=== PATIENT | female | born 1940 | race Caucasian/White ===

== ENCOUNTER 2016-09-19 18:44 | Observation (INO) | payer OTHER, MEDICAID ==
--- NOTE | 2016-09-19 19:24 | DR.GENAD ---
HPI - HPI Comment HPI Comment: PATIENT FOUND IN THE WHEELCHAIR SEIZING. HISTORY SEIZURE DISORDER. ON LAMICTAL. NO RECENT SEIZURE. PATIENT SAID HER MUSCLES HURT. THIS HAPPEN AFTER SEIZURES. HAVE SLIGHT HEADACHE, SOB AND CHEST DISCOMFORT. NO FEVER OR DYSURIA. PATIENT FEEL LIKE SHE HAD MORE THAN ONE SEIZURE BEFORE THE FOUND HER. - Complaint/Symptoms Chief Complaint Doctors Comments: SEIZURE AT THE JAIL. - Nurses notes reviewed Nurses Notes Review: Yes - Source History Provided: Parent, Fpc - Mode of Arrival Mode of Arrival: Stretcher - Timing Came on: Suddenly - Duration Duration: Since Onset Duration: Hours - Severity Severity: Moderate PMH - PMH Past Medical History: Anxiety, CVA, GERD Past Surgical History: Yes Surgical History: Cholecystectomy - Family History Family Medical History: Diabetes Mellitus, Cancer, Hypertension - Social History Do you use any recreational Drugs:: No ROS - Review of Systems Constitutional: Weakness, Fatigue. negative: Chills, Diaphoresis, Fever, Loss of Appetite Eyes: No Symptoms Reported. negative: Eye Pain, Blurred Vision, Discharge, Photophobia, Diplopia ENTM: No Symptoms Reported. negative: Ear Pain, Epistaxis, Nose Congestion, Throat Pain Respiratoy: Non-Productive Cough, Short of Breath (ON EXERTION). negative: Productive Cough, Wheezing, Hemoptysis Cardiovascular: Chest Pain, Edema, Syncope Gastrointestinal/Abdominal: negative: Abdominal Pain, Diarrhea, Nausea, Vomiting Genitourinary: Hematuria, Other (INCONTINENCE ) Neurological: Headache, Weakness, Dizziness Musculoskeletal: Muscle Pain Integumentary: Other (STASIS DERMATITIS) Hematologic/Lymphatic: Easy Bleeding, Easy Bruising Endocrine: No Symptoms Reported All Other Systems: Reviewed and Negative PE - Vital Signs Vitals: Pulse Rate 104 Respiratory Rate 18 Blood Pressure [Left Arm] 117/69 Blood Pressure [Right Arm] 145/88 Blood Pressure 132/61 O2 Sat by Pulse Oximetry 95 - General Limitations: No Limitations General Appearance: Alert - Head Head Exam: Normal Inspection - Eyes Eye exam: Other (PTOSIS RT EYE.) - ENT ENT Exam: Normal External Ear Exam, Other (PTOSIS RT EYE.) External Ear Exam: Normal External Inspection TM/Canal Exam: Bilateral Normal Nose Exam: Normal Nose Exam Mouth Exam: Normal Inspection Throat Exam: Normal Inspection - Neck Neck Exam: Normal Inspection - Chest Chest Inspection: Symmetric Chest Wall Rise - Respiratory Respiratory Exam: Normal Lung Sounds Bilat. negative: Respiratory Distress Respiratory Exam: Bilateral Rhonchi, Lower Rhonchi - Cardiovascular Cardiovascular Exam: Regular Rate, Normal Rhythm, Normal Heart Sounds - Abdominal Exam Abdominal Exam: Normal Bowel Sounds, Soft. negative: Tenderness - Extremities Extremities Exam: Edema - Back Back Exam: Paraspinal Tenderness - Neurologic Neurological Exam: Alert, Oriented X3 - Psychiatric Psychiatric Exam: Normal Affect, Normal Mood - Skin Skin Exam: Erythema MDM - Differential Diagnosis Differential Diagnosis: SEIZURE Course - Treatment Treatment: SEE ORDERS - Consultation Consultation Comments: DISCUSS PATIENT WITH DR. BOYCE. HE WILL ADMIT PATIENT. - Education/Counseling Education/Counseling: Patient, Education Educated On: Diagnosis ROR - Labs Reviewed Laboratory Results Reviewed?: Yes Result Diagrams: 09/20/16 05:30 09/20/16 05:30 - XRAY XRAY Interpreted by: Radiologist XRAY Findings: REPORT DISCUSS WITH PATIENT. - EKG Rhythm: NSR (EKG NOTED) - Diagnosis Discharge Problem: Seizure, Seizure disorder - Discharge Plan Disposition: ADMITTED INPATIENT Condition: Stable - Follow ups/Referrals - Instructions
[2016-09-19 20:08] LABS: BASOPHILS # (AUTO) 0.1 X10^3/uL (0.0-0.1); BASOPHILS % (AUTO) 0.8 % (0.2-1.0); EOSINOPHILS # (AUTO) 0.2 x10^3/uL (0.0-0.2); EOSINOPHILS % (AUTO) 2.2 % (0.9-2.9); HEMATOCRIT 41.2 % (36.0-47.0); HEMOGLOBIN 13.9 g/dL (12.0-16.0); LYMPHOCYTES # (AUTO) 0.9 X10^3/uL (1.3-2.9); LYMPHOCYTES % (AUTO) 12.2 % (21.0-51.0); MEAN CORPUSCULAR HEMOGLOBIN 29.6 pg (27.0-34.0); MEAN CORPUSCULAR HGB CONC 33.7 g/dL (33.0-35.0); MEAN CORPUSCULAR VOLUME 87.8 fL (80.0-100.0); MEAN PLATELET VOLUME 8.4 fL (7.4-11.0); MONOCYTES # (AUTO) 0.6 x10^3/uL (0.3-0.8); MONOCYTES % (AUTO) 8.4 % (0.0-13.0); NEUTROPHILS # (AUTO) 5.5 x10^3/uL (2.2-4.8); NEUTROPHILS % (AUTO) 76.4 % (42.0-75.0); PLATELET COUNT 250 X10^3/uL (150.0-450.0); RED BLOOD COUNT 4.69 X10^6/uL (3.5-5.4); RED CELL DISTRIBUTION WIDTH 14.4 % (11.6-16.5); WHITE BLOOD COUNT 7.3 X10^3/uL (3.6-10.0)
[2016-09-19 20:29] LABS: BLOOD UREA NITROGEN 26 mg/dL (7-18); CALCIUM 8.2 mg/dL (8.5-10.1); CARBON DIOXIDE 26.7 mmol/L (21-32); CHLORIDE 108 mmol/L (98-107); COR NA(FOR HYPERGLY) 143 mmol/L (136-145); CREATININE 0.78 mg/dL (0.55-1.02); GLUCOSE 119 mg/dL (65-99); SODIUM 143 mmol/L (136-145); TROPONIN I < 0.02 ng/mL (0-1.5); eGFR BLACK RACES > 60 (>60); eGFR NON BLACK RACES > 60 (>60)
[2016-09-19 20:33] LABS: ALANINE AMINOTRANSFERASE 26 Units/L (12-78); ALBUMIN 3.4 g/dL (3.4-5.0); ALKALINE PHOSPHATASE 191 Units/L (46-116); ASPARTATE AMINO TRANSFERASE 21 Units/L (15-37); TOTAL PROTEIN 6.7 g/dL (6.4-8.2)
--- NOTE | 2016-09-19 20:39 | RAD ---
HISTORY: Chest pain Study: Single view of the chest. Comparison: 02/28/2016 Findings: The cardiomediastinal silhouette is normal. No definite focal consolidations, pleural effusions or p neumothorax. Osseous structures demonstrate no acute abnormality. Patient's left arm obscures view o f the left chest. IMPRESSION: 1. No definite acute cardiopulmonary process. Patient's left arm obscures the left chest and theref ore pathology cannot be completely excluded in this region. Reported By:
[2016-09-19 20:40] LABS: CKMB % 1.4 % (<4); CREATINE KINASE 100 Units/L (26-192); CREATINE KINASE MB 1.4 ng/mL (0-4.0)
[2016-09-19] MEDS: NS 1000 ML 1,000 ML IV SCH (21:46)
[2016-09-20 00:32] VITALS: BMI 25.8
[2016-09-20 06:07] LABS: BILIRUBIN,URINE NEGATIVE (NEGATIVE); BLOOD/HEMOGLOBIN,URINE 2+ (NEGATIVE); GLUCOSE, URINE NEGATIVE (NEGATIVE); KETONES,URINE NEGATIVE (NEGATIVE); LEUKOCYTE ESTERASE ,URINE 1+ (NEGATIVE); NITRITES,URINE POSITIVE (NEGATIVE); PROTEIN,URINE NEGATIVE (NEGATIVE); UROBILINOGEN,URINE NORMAL (NORMAL)
[2016-09-20 06:09] LABS: BASOPHILS # (AUTO) 0.1 X10^3/uL (0.0-0.1); BASOPHILS % (AUTO) 0.8 % (0.2-1.0); EOSINOPHILS # (AUTO) 0.2 x10^3/uL (0.0-0.2); EOSINOPHILS % (AUTO) 3.4 % (0.9-2.9); HEMATOCRIT 39.4 % (36.0-47.0); HEMOGLOBIN 13.1 g/dL (12.0-16.0); LYMPHOCYTES # (AUTO) 1.3 X10^3/uL (1.3-2.9); LYMPHOCYTES % (AUTO) 19.5 % (21.0-51.0); MEAN CORPUSCULAR HEMOGLOBIN 29.4 pg (27.0-34.0); MEAN CORPUSCULAR HGB CONC 33.2 g/dL (33.0-35.0); MEAN CORPUSCULAR VOLUME 88.5 fL (80.0-100.0); MEAN PLATELET VOLUME 9.7 fL (7.4-11.0); MONOCYTES # (AUTO) 0.7 x10^3/uL (0.3-0.8); MONOCYTES % (AUTO) 11.3 % (0.0-13.0); NEUTROPHILS # (AUTO) 4.3 x10^3/uL (2.2-4.8); PLATELET COUNT 165 X10^3/uL (150.0-450.0); RED BLOOD COUNT 4.45 X10^6/uL (3.5-5.4); RED CELL DISTRIBUTION WIDTH 14.2 % (11.6-16.5); WHITE BLOOD COUNT 6.6 X10^3/uL (3.6-10.0)
[2016-09-20 06:32] LABS: PLATELET MORPHOLOGY COMMENT NORMAL (NORMAL)
[2016-09-20 06:34] LABS: ALANINE AMINOTRANSFERASE 22 Units/L (12-78); ALBUMIN 2.9 g/dL (3.4-5.0); ALKALINE PHOSPHATASE 159 Units/L (46-116); ASPARTATE AMINO TRANSFERASE 19 Units/L (15-37); BLOOD UREA NITROGEN 23 mg/dL (7-18); CALCIUM 7.8 mg/dL (8.5-10.1); CARBON DIOXIDE 25.2 mmol/L (21-32); CHLORIDE 111 mmol/L (98-107); COR CA(FOR HYPOALB) 8.7 mg/dL (8.5-10.1); CREATININE 0.69 mg/dL (0.55-1.02); GLUCOSE 80 mg/dL (65-99); MAGNESIUM 2.1 mg/dL (1.7-2.9); SODIUM 143 mmol/L (136-145); TOTAL PROTEIN 5.8 g/dL (6.4-8.2); eGFR BLACK RACES > 60 (>60); eGFR NON BLACK RACES > 60 (>60)
[2016-09-20 06:42] LABS: APPEARANCE,URINE HAZY (CLEAR); BACTERIA,URINE 1+ /HPF (NEGATIVE); COLOR,URINE YELLOW (YELLOW); SQUAMOUS EPITHELIAL CELL,UR MODERATE /HPF (NEGATIVE)
[2016-09-20] MEDS ORDERED: MIRALAX POWDER (255 GM BTL) PO PRN (11:11)
[2016-09-20] MEDS ORDERED: NS 100 ML IV 100 ML IV ONE (12:18)
--- NOTE | 2016-09-20 13:21 | CT ---
STUDY: CT HEAD WITHOUT AND WITH CONTRAST HISTORY: Seizures. COMPARISON: Head CT dated August 01, 2014. TECHNIQUE: Multiple axial images of the head were obtained from the skull base to the vertex without and with administration of IV contrast. Automated exposure control (AEC) was utilized to adjust the MA and/or kV. Findings: Precontrast Head: There is a larger right fronto temporal craniectomy defect. There is extensive cys tic encephalomalacia involving the right frontal lobe and right temporal lobe. There is ex vacuo dil atation of the right lateral ventricle. The left lateral ventricle and 3rd ventricle are enlarged . The 4th ventricle is within normal limits. There assymmetric atrophy of the right cerebral peduncle. There are confluent and scattered foci of low attenuation in the periventricular and subcortical whi te matter of both hemispheres. This is greater on the right than the left. There is no evidence of a cute territorial infarction, hemorrhage, mass, mass effect or midline shift. There are no abnormal e xtra-axial fluid collections. There is no evidence of acute osseous abnormality or significant soft tissue swelling. Postcontrast head: Following the uneventful administration of intravenous contrast, there is no evid ence of abnormal brain parenchymal or leptomeningeal enhancement. IMPRESSION: 1. No evidence of acute intracranial abnormality. 2. Postsurgical change status post right frontotemporal craniectomy. 3. Extensive encephalomalacia involving the right frontal and temporal lobes. 4. Nonspecific white matter change and volume loss as described. Reported By:
[2016-09-20] MEDS: LINZESS PO SCH (13:36)
[2016-09-20] MEDS: ZANTAC PO SCH ×2 (13:36→21:28)
[2016-09-20] MEDS: MICRO K EXTEN CAP 10 MEQ PO SCH ×2 (13:36→21:26)
[2016-09-20] MEDS: BUSPAR PO SCH ×2 (13:37→21:25)
[2016-09-20] MEDS: ARTIFICIAL TEARS DROPS EACHEYE SCH ×2 (13:37→21:29)
[2016-09-20] MEDS: LIORESAL PO SCH ×2 (13:37→21:24)
[2016-09-20] MEDS: LAMICTAL TAB 100 MG PO SCH ×2 (13:37→21:26)
[2016-09-20] MEDS: NS 1000 ML 1,000 ML IV SCH ×2 (16:24→17:57)
[2016-09-20] MEDS ORDERED: REMERON PO SCH (21:00)
[2016-09-20] MEDS ORDERED: VITAMIN D3 PO SCH (21:00)
[2016-09-21] MEDS: NS 1000 ML 1,000 ML IV SCH (03:52)
[2016-09-21 03:57] LABS: BASOPHILS # (AUTO) 0.1 X10^3/uL (0.0-0.1); EOSINOPHILS # (AUTO) 0.2 x10^3/uL (0.0-0.2); EOSINOPHILS % (AUTO) 3.1 % (0.9-2.9); HEMOGLOBIN 12.3 g/dL (12.0-16.0); LYMPHOCYTES # (AUTO) 1.2 X10^3/uL (1.3-2.9); LYMPHOCYTES % (AUTO) 21.9 % (21.0-51.0); MEAN CORPUSCULAR HEMOGLOBIN 29.5 pg (27.0-34.0); MEAN CORPUSCULAR HGB CONC 33.3 g/dL (33.0-35.0); MEAN CORPUSCULAR VOLUME 88.6 fL (80.0-100.0); MEAN PLATELET VOLUME 8.5 fL (7.4-11.0); MONOCYTES # (AUTO) 0.6 x10^3/uL (0.3-0.8); MONOCYTES % (AUTO) 10.6 % (0.0-13.0); NEUTROPHILS # (AUTO) 3.4 x10^3/uL (2.2-4.8); NEUTROPHILS % (AUTO) 63.4 % (42.0-75.0); PLATELET COUNT 214 X10^3/uL (150.0-450.0); RED BLOOD COUNT 4.18 X10^6/uL (3.5-5.4); RED CELL DISTRIBUTION WIDTH 14.3 % (11.6-16.5); WHITE BLOOD COUNT 5.4 X10^3/uL (3.6-10.0)
[2016-09-21 04:06] LABS: ALANINE AMINOTRANSFERASE 23 Units/L (12-78); ALBUMIN 2.7 g/dL (3.4-5.0); ALKALINE PHOSPHATASE 160 Units/L (46-116); ASPARTATE AMINO TRANSFERASE 19 Units/L (15-37); BLOOD UREA NITROGEN 17 mg/dL (7-18); CALCIUM 7.9 mg/dL (8.5-10.1); CARBON DIOXIDE 24.7 mmol/L (21-32); COR CA(FOR HYPOALB) 8.9 mg/dL (8.5-10.1); CREATININE 0.77 mg/dL (0.55-1.02); GLUCOSE 91 mg/dL (65-99); SODIUM 145 mmol/L (136-145); TOTAL PROTEIN 5.4 g/dL (6.4-8.2); eGFR BLACK RACES > 60 (>60); eGFR NON BLACK RACES > 60 (>60)
[2016-09-21 04:09] LABS: CHLORIDE 115 mmol/L (98-107)
[2016-09-21] MEDS: ARTIFICIAL TEARS DROPS EACHEYE SCH ×2 (05:52→14:10)
[2016-09-21] MEDS: MICRO K EXTEN CAP 10 MEQ PO SCH ×2 (05:53→14:10)
[2016-09-21] MEDS: LIORESAL PO SCH (09:14)
[2016-09-21] MEDS: BUSPAR PO SCH (09:14)
[2016-09-21] MEDS: LINZESS PO SCH (09:14)
[2016-09-21] MEDS: ZANTAC PO SCH (09:14)
[2016-09-21] MEDS: LAMICTAL TAB 100 MG PO SCH (09:15)
[2016-09-21 12:23] VITALS: BP 100/47
--- NOTE | 2016-09-21 18:26 | DR.CARTERD ---
- Discharge Summary for: Discharge Summary for Date of:: 09/21/16 - Admission Date Date of Admission: 09/19/16 - Admission Diagnoses Admission Diagnosis: 1) KNOWN BENIGN BRAIN TUMOR 2)SEIZURE DISORDER 3)HYPOKALEMIA - Discharge Date Discharge Date: 09/21/16 - Discharge Diagnoses Discharge Diagnosis: 1) KNOWN BENIGN BRAIN TUMOR 2)SEIZURE DISORDER 3)HYPOKALEMIA - Hospital Course Hospital Course: IS A 76 YEAR OLD PATIENT OF . SHE IS A RESIDENT OF [facility]. SHE PRESENTED TO THE EMERGENCY ROOM WITH WHAT STAFF REPORTED SEIZURE LIKE ACTIVITY. PATIENT WAS NOTED WITH COMPLAINTS OF HEADACHE, SHORTNESS OF BREATH, AND CHEST DISCOMFORT. SHE ALSO COMPLAINED OF HER MUSCLES ACHING. PATIENT STATED THAT SHE USUALLY HAS THESE SYMPTOMS AFTER HAVING A SEIZURE. LABS AND CHEST XRAY WERE OBTAINED. CBC WAS WNL. CMP WNL EXCEPT CHLORIDE 108, BUN 26, GLUCOSE 119, CALCIUM 8.0, TOTAL BILIRUBIN 0.10, ALKALINE PHOSPHATASE 191. URINALYSIS REPORTED WBC 4-8, LEUKOCYTES 1+, BACTERIA 1+, NITRATES POSITIVE. CHEST XRAY WAS CLEAR. PATIENT WAS ADMITTED FOR FURTHER TREATMENT AND EVALUATION. SHE WAS STARTED ON NS @ 50ML/HR. A BRAIN CT WAS ORDERED FOR THE MORNING FOLLOWING ADMISSION. IT REPORTED EXTENSIVE ENCEPHALOMALACIA INVOLVING THE RIGHT FRONTAL AND TEMPERAL LOBES, POST SURGICAL CHANGED STATUS POST RIGHT FRONTOTEMPERAL CRANIECTOMY, AND NONSPECIFIC WHITE MATTER CHANGE AND VOLUME LOSS. NO EVIDENCE FOR ACUTE ABNORMALITY WAS IDENTIFIED. ON THE DAY OF ADMISSION, PATIENT WAS LYING IN BED WITH EYES OPEN. SHE HAD NO COMPLAINTS ON ROUNDS. VITALS WERE 97.9-74-20-100%-110/41. CBC WNL. CMP REPORTED CHLORIDE 115, CALCIUM 7.9, ALKALINE PHOSPHATAE 160, TOTAL PROTEIN 5.4, ALBUMIN 2.7. WE PLANNED FOR DISCHARGE. INSTRUCTIONS FOR MEDICATIONS AND FOLLOW UP WERE GIVEN TO PATIENT AND STAFF AT [facility]. PATIENT WAS DISCHARGED BACK TO [facility] IN STABLE CONDITION. SHE WILL CONTINUE ON CURRENT HOME MEDICATIONS. WILL FOLLOW UP WITH PATIENT AT [facility]. - Discharge Medications Discharge Medications: Linaclotide [Linzess] 145 mcg PO DAILY 09/19/16 [History] Mirtazapine 15 mg PO HS 09/19/16 [History] Polyethylene Glycol Pwd Btl [MIRALAX. (255 GM BOTTLE) *] 37 grams PO Q24H PRN [History]
== END 2016-09-21 14:44 ==
LOC: ER 18:54 → ICU 20:46
PROVIDERS: ADMIT Obstetrics & Gynecology Obstetrics; ATTEND Obstetrics & Gynecology Obstetrics
DX: G40.802 Other epilepsy, not intractable, without status epilepticus (principal); R07.89 Other chest pain; R06.02 Shortness of breath; R51 Headache; F41.8 Other specified anxiety disorders; K21.9 Gastro-esophageal reflux disease without esophagitis; R94.31 Abnormal electrocardiogram [ECG] [EKG]; E87.6 Hypokalemia; G93.89 Other specified disorders of brain; Z87.898 Personal history of other specified conditions
CPT/HCPCS: 36415; 70470; 71010; 80053; 81001; 82550; 82553; 83735; 84484; 85025; 93005; 93010; 96365; 99284; A4222; G0378

== ENCOUNTER → 2016-10-10 | Outpatient (CLI) | payer OTHER, MEDICAID ==
[2016-09-21 12:23] VITALS: BP 100/47
[2016-10-10 12:18] LABS: BASOPHILS # (AUTO) 0.1 X10^3/uL (0.0-0.1); BASOPHILS % (AUTO) 0.8 % (0.2-1.0); EOSINOPHILS # (AUTO) 0.2 x10^3/uL (0.0-0.2); EOSINOPHILS % (AUTO) 2.7 % (0.9-2.9); HEMATOCRIT 43.1 % (36.0-47.0); HEMOGLOBIN 14.2 g/dL (12.0-16.0); LYMPHOCYTES # (AUTO) 1.1 X10^3/uL (1.3-2.9); LYMPHOCYTES % (AUTO) 17.8 % (21.0-51.0); MEAN CORPUSCULAR HEMOGLOBIN 29.4 pg (27.0-34.0); MEAN CORPUSCULAR VOLUME 89.3 fL (80.0-100.0); MEAN PLATELET VOLUME 8.5 fL (7.4-11.0); MONOCYTES # (AUTO) 0.6 x10^3/uL (0.3-0.8); MONOCYTES % (AUTO) 9.4 % (0.0-13.0); NEUTROPHILS # (AUTO) 4.3 x10^3/uL (2.2-4.8); NEUTROPHILS % (AUTO) 69.3 % (42.0-75.0); PLATELET COUNT 243 X10^3/uL (150.0-450.0); RED BLOOD COUNT 4.82 X10^6/uL (3.5-5.4); RED CELL DISTRIBUTION WIDTH 14.4 % (11.6-16.5); WHITE BLOOD COUNT 6.1 X10^3/uL (3.6-10.0)
[2016-10-10 12:28] LABS: ALANINE AMINOTRANSFERASE 26 Units/L (12-78); ALBUMIN 3.5 g/dL (3.4-5.0); ALKALINE PHOSPHATASE 162 Units/L (46-116); ASPARTATE AMINO TRANSFERASE 19 Units/L (15-37); BLOOD UREA NITROGEN 23 mg/dL (7-18); CALCIUM 8.7 mg/dL (8.5-10.1); CARBON DIOXIDE 28.3 mmol/L (21-32); CHLORIDE 103 mmol/L (98-107); GLUCOSE 98 mg/dL (65-99); SODIUM 127 mmol/L (136-145); eGFR BLACK RACES > 60 (>60); eGFR NON BLACK RACES > 60 (>60)
--- NOTE | 2016-10-10 15:53 | RAD ---
HISTORY: Diarrhea Study: Acute abdominal series Comparison: February 28, 2016 Findings: The trachea is midline. The cardiac silhouette is mildly enlarged. No congestive heart failure is n oted.. The lungs are clear without focal infiltrate or effusion. The bony thorax is unremarkable. Flat plate and upright evaluation of the abdomen demonstrates a normal bowel gas pattern. No pneumop eritoneum is identified.. No pathological soft tissue mass or calcification can be observed. The b judith structures are grossly intact. There is a coil length of catheter material in the mid pelvis lik bijal within the bladder. The reason for this is unclear. This could represent an old ureteral stent. It has been present for a long period time. IMPRESSION: 1. Cardiomegaly without congestive heart failure 2. No evidence for acute abdominal pathology identified. 3. Long segment of coiled catheter in the mid pelvis likely within the bladder and possibly represen ting an old ureteral stent. This is been present for a long period of time. For the urologic evaluat ion may be indicated. Reported By:
== END ==
LOC: RAD 08:42
PROVIDERS: ATTEND Obstetrics & Gynecology Obstetrics
DX: R19.7 Diarrhea, unspecified (principal)
CPT/HCPCS: 36415; 74022; 80053; 85025

== ENCOUNTER 2018-04-25 06:50 | Inpatient (IN) ==
[2018-04-25 07:09] VITALS: BMI 26.0
[2018-04-25] MEDS ORDERED: DUONEB 0.5 MG/3 MG NEB ONE (07:16)
[2018-04-25] MEDS ORDERED: DUONEB 0.5 MG/3 MG ONE (07:17)
--- NOTE | 2018-04-25 07:35 | RAD ---
Examination: AP chest History: Seizure, cough SOB Comparison 10/27/2017 Findings: Cardiomegaly and aortic dilatation. Low volume lungs with elevated right diaphragm. Overlying anatomy obscures the upper lungs and mediastinum. Impression: Cardiomegaly. No acute pulmonary or pleural lesion identified. See above. Reported By:
[2018-04-25 07:45] LABS: BASOPHILS % (AUTO) 0.3 % (0.2-1.0); EOSINOPHILS % (AUTO) 0.2 % (0.9-2.9); HEMATOCRIT 41.8 % (36.0-47.0); HEMOGLOBIN 13.7 g/dL (12.0-16.0); LYMPHOCYTES # (AUTO) 0.7 X10^3/uL (1.3-2.9); LYMPHOCYTES % (AUTO) 4.4 % (21.0-51.0); MEAN CORPUSCULAR HEMOGLOBIN 29.5 pg (27.0-34.0); MEAN CORPUSCULAR HGB CONC 32.8 g/dL (33.0-35.0); MEAN CORPUSCULAR VOLUME 89.7 fL (80.0-100.0); MEAN PLATELET VOLUME 8.6 fL (7.4-11.0); MONOCYTES # (AUTO) 1.1 x10^3/uL (0.3-0.8); MONOCYTES % (AUTO) 7.2 % (0.0-13.0); NEUTROPHILS % (AUTO) 87.9 % (42.0-75.0); PLATELET COUNT 285 X10^3/uL (150.0-450.0); RED BLOOD COUNT 4.66 X10^6/uL (3.5-5.4); RED CELL DISTRIBUTION WIDTH 14.4 % (11.6-16.5)
--- NOTE | 2018-04-25 08:01 | DR.SEIZA ---
HPI Time Seen Time Seen by Provider: 04/25/18 07:30 Primary Care Physician Primary Care Physician: cho Complaints Chief Complaint Doctors Comments: A 77 y/o female HNR who presented with information relate d by staff of having had a seizure this morning (0630 hrs). Duration of sz. not ascertained. Pt. herself said she has been having cough for the past 2-3 days, not productive. While in the ED, she was noted with a temp elevation. Chief Complaint:: [facility] staff stated she had a seizure at 630 this morning. pt stated she always has seizures, pt stated she was here cause she has been coughing and short of breath for 2 days. Source History Provided: Law Enforcement Mode of Arrival Mode of Arrival: Stretcher Timing Onset of Chief Complaint: 04/23/18 PMH PMH Past Medical History: Yes Past Medical History: Anxiety, CVA and GERD Past Surgical History: Yes Surgical History: Cholecystectomy Family History History of Family Medical Conditions: Yes Family Medical History: Diabetes Mellitus, Cancer and Hypertension Social History Does patient currently use any type of tobacco product: No Have you used tobacco products in the last 12 months: No Type of Tobacco Use: None Does any household member use tobacco: No Alcohol Use: Rarely Do you use any recreational Drugs:: No Lives With: Other Lives Where: Alf infectious screening In the last 2 months have you had wt loss of >10#?: NO Have you had fever, night sweats or hemotysis?: No Have you traveled outside the country in the last 6 months?: No Isolation: Standard ROS Review of Systems Constitutional: Fever Eyes: No Symptoms Reported ENTM: No Symptoms Reported Respiratoy: Non-Productive Cough, Short of Breath and Wheezing Cardiovascular: No Symptoms Reported Gastrointestinal/Abdominal: No Symptoms Reported Genitourinary: No Symptoms Reported Neurological: Seizure Musculoskeletal: No Symptoms Reported Integumentary: No Symptoms Reported Hematologic/Lymphatic: No Symptoms Reported Endocrine: No Symptoms Reported Psychiatric: No Symptoms Reported PE Vital Signs Vitals: Temperature 100.1 F Pulse Rate 125 Respiratory Rate 18 Blood Pressure [Left Arm] 131/61 Blood Pressure [Right Arm] 100/47 Blood Pressure 128/60 O2 Sat by Pulse Oximetry 95 General Limitations: No Limitations General Appearance: Alert Head Head Exam: Normal Inspection, Atraumatic and Normocephalic Eyes Eye exam: Normal Appearance, PERRL and EOMI ENT ENT Exam: Normal Exam, Normal Oropharynx and Mucous Membranes Moist Neck Neck Exam: Normal Inspection and Trachea Midline Chest Chest Inspection: Normal Inspection and Symmetric Chest Wall Rise Respiratory Respiratory Exam: Bilateral: Wheezing and Bilateral: Rhonchi Cardiovascular Cardiovascular Exam: Regular Rate, Normal Rhythm, +S1 and +S2 Abdominal Exam Abdominal Exam: Normal Inspection, Normal Bowel Sounds and Soft Extremities Extremities Exam: Normal Inspection Neurologic Neurological Exam: Alert Psychiatric Psychiatric Exam: Normal Affect and Normal Mood Skin Skin Exam: Warm, Dry, Intact and Normal Color ROR Labs Reviewed Result Diagrams: 04/25/18 07:35 04/25/18 07:35 Laboratory: WBC 16.0 X10^3/uL (3.6-10.0) H 04/25/18 07:35 RBC 4.66 X10^6/uL (3.5-5.4) 04/25/18 07:35 Hgb 13.7 g/dL (12.0-16.0) 04/25/18 07:35 Hct 41.8 % (36.0-47.0) 04/25/18 07:35 MCV 89.7 fL (80.0-100.0) 04/25/18 07:35 MCH 29.5 pg (27.0-34.0) 04/25/18 07:35 MCHC 32.8 g/dL (33.0-35.0) L 04/25/18 07:35 RDW 14.4 % (11.6-16.5) 04/25/18 07:35 Plt Count 285 X10^3/uL (150.0-450.0) 04/25/18 07:35 MPV 8.6 fL (7.4-11.0) 04/25/18 07:35 Neut % (Auto) 87.9 % (42.0-75.0) H 04/25/18 07:35 Lymph % (Auto) 4.4 % (21.0-51.0) L 04/25/18 07:35 [place] % (Auto) 7.2 % (0.0-13.0) 04/25/18 07:35 Eos % (Auto) 0.2 % (0.9-2.9) L 04/25/18 07:35 Baso % (Auto) 0.3 % (0.2-1.0) 04/25/18 07:35 Neut # (Auto) 14.0 x10^3/uL (2.2-4.8) H 04/25/18 07:35 Lymph # (Auto) 0.7 X10^3/uL (1.3-2.9) L 04/25/18 07:35 [place] # (Auto) 1.1 x10^3/uL (0.3-0.8) H 04/25/18 07:35 Eos # (Auto) 0.0 x10^3/uL (0.0-0.2) 04/25/18 07:35 Baso # (Auto) 0.0 X10^3/uL (0.0-0.1) 04/25/18 07:35 Absolute Nucleated RBC 0.0 /100WBC 04/25/18 07:35
[2018-04-25] MEDS ORDERED: ROBITUSSIN DM ONE (08:03)
[2018-04-25 08:12] LABS: ALANINE AMINOTRANSFERASE 23 Units/L (12-78); ALBUMIN 3.4 g/dL (3.4-5.0); ALKALINE PHOSPHATASE 170 Units/L (46-116); ASPARTATE AMINO TRANSFERASE 16 Units/L (15-37); BLOOD UREA NITROGEN 21 mg/dL (7-18); CALCIUM 9.1 mg/dL (8.5-10.1); CARBON DIOXIDE 25.1 mmol/L (21-32); CHLORIDE 110 mmol/L (98-107); COR NA(FOR HYPERGLY) 148 mmol/L (136-145); CREATININE 1.08 mg/dL (0.55-1.02); SODIUM 147 mmol/L (136-145); TOTAL PROTEIN 6.8 g/dL (6.4-8.2); eGFR NON BLACK RACES 52 (>60)
[2018-04-25 08:14] LABS: LACTIC ACID 2.8 mmol/L (0.4-2.0)
[2018-04-25] MEDS ORDERED: ROBITUSSIN DM PO ONE (08:14)
--- NOTE | 2018-04-25 08:31 | DR.SEIZA ---
HPI Time Seen Time Seen by Provider: 04/25/18 07:30 Primary Care Physician Primary Care Physician: cho Complaints Chief Complaint Doctors Comments: Patient presents with complaint of cough recent onset; non productive, febrile. PMHx: seizures craniotomy x several according to spouse. Chief Complaint:: [facility] staff stated she had a seizure at 630 this morning. pt stated she always has seizures, pt stated she was here cause she has been coughing and short of breath for 2 days. Reviewed Nurses Notes Reviewed: Yes Source History Provided: Patient, Family Member and Law Enforcement Mode of Arrival Mode of Arrival: Stretcher Timing Onset of Chief Complaint: 04/23/18 PMH PMH Past Medical History: Yes Past Medical History: Anxiety, CVA and GERD Past Surgical History: Yes Surgical History: Cholecystectomy Family History History of Family Medical Conditions: Yes Family Medical History: Diabetes Mellitus, Cancer and Hypertension Social History Does patient currently use any type of tobacco product: No Have you used tobacco products in the last 12 months: No Type of Tobacco Use: None Does any household member use tobacco: No Alcohol Use: Rarely Do you use any recreational Drugs:: No Lives With: Other Lives Where: [place] infectious screening In the last 2 months have you had wt loss of >10#?: NO Have you had fever, night sweats or hemotysis?: No Have you traveled outside the country in the last 6 months?: No Isolation: Standard PE Vital Signs Vitals: Temperature 100.1 F Pulse Rate 125 Respiratory Rate 18 Blood Pressure [Left Arm] 131/61 Blood Pressure [Right Arm] 100/47 Blood Pressure 128/60 O2 Sat by Pulse Oximetry 95 General Limitations: Physical Limitation General Appearance: Alert and In No Apparent Distress Head Head Exam: Normal Inspection, Atraumatic and Normocephalic Eyes Eye exam: Normal Appearance, PERRL and EOMI Eyelids: Normal Inspection: Bilateral Pupils: Regular, Round: Bilateral Sclera/Conjunctival: Normal Inspection: Bilateral ENT ENT Exam: Normal Exam, Normal Oropharynx, Normal External Ear Exam and Mucous Membranes Moist Mouth Exam: Normal Inspection Neck Neck Exam: Normal Inspection Chest Chest Inspection: Normal Inspection Respiratory Respiratory Exam: Upper: Rhonchi Cardiovascular Cardiovascular Exam: Regular Rate and Normal Rhythm Abdominal Exam Abdominal Exam: Normal Inspection, Normal Bowel Sounds and Soft Abdominal Tenderness: RUQ, RLQ and LUQ Extremities Extremities Exam: Normal Inspection Back Back Exam: Normal Inspection Neurologic Neurological Exam: Alert and Oriented X3 Cranial Nerve Exam: EOM Function (II, III, IV, ): Normal Skin Skin Exam: Warm, Dry, Intact and Normal Color COURSE Treatment Treatment: DuoNeb Reevaluation 1st: Unchanged ROR Labs Reviewed Laboratory Results Reviewed?: Yes Result Diagrams: 04/25/18 07:35 04/25/18 07:35 Laboratory: 04/25/18 11:19 Sputum - Expectorated Sputum - Final WBC 16.0 X10^3/uL (3.6-10.0) H 04/25/18 07:35 RBC 4.66 X10^6/uL (3.5-5.4) 04/25/18 07:35 Hgb 13.7 g/dL (12.0-16.0) 04/25/18 07:35 Hct 41.8 % (36.0-47.0) 04/25/18 07:35 MCV 89.7 fL (80.0-100.0) 04/25/18 07:35 MCH 29.5 pg (27.0-34.0) 04/25/18 07:35 MCHC 32.8 g/dL (33.0-35.0) L 04/25/18 07:35 RDW 14.4 % (11.6-16.5) 04/25/18 07:35 Plt Count 285 X10^3/uL (150.0-450.0) 04/25/18 07:35 MPV 8.6 fL (7.4-11.0) 04/25/18 07:35 Neut % (Auto) 87.9 % (42.0-75.0) H 04/25/18 07:35 Lymph % (Auto) 4.4 % (21.0-51.0) L 04/25/18 07:35 [place] % (Auto) 7.2 % (0.0-13.0) 04/25/18 07:35 Eos % (Auto) 0.2 % (0.9-2.9) L 04/25/18 07:35 Baso % (Auto) 0.3 % (0.2-1.0) 04/25/18 07:35 Neut # (Auto) 14.0 x10^3/uL (2.2-4.8) H 04/25/18 07:35 Lymph # (Auto) 0.7 X10^3/uL (1.3-2.9) L 04/25/18 07:35 [place] # (Auto) 1.1 x10^3/uL (0.3-0.8) H 04/25/18 07:35 Eos # (Auto) 0.0 x10^3/uL (0.0-0.2) 04/25/18 07:35 Baso # (Auto) 0.0 X10^3/uL (0.0-0.1) 04/25/18 07:35 Absolute Nucleated RBC 0.0 /100WBC 04/25/18 07:35 Sodium 147 mmol/L (136-145) H 04/25/18 07:35 Corrected Sodium 148 mmol/L (136-145) H 04/25/18 07:35 Potassium 3.9 mmol/L (3.5-5.1) 04/25/18 07:35 Chloride 110 mmol/L (98-107) H 04/25/18 07:35 Carbon Dioxide 25.1 mmol/L (21-32) 04/25/18 07:35 BUN 21 mg/dL (7-18) H 04/25/18 07:35 Creatinine 1.08 mg/dL (0.55-1.02) H 04/25/18 07:35 Est GFR (MDRD) Af Amer > 60 (>60) 04/25/18 07:35 Est GFR (MDRD) Non-Af 52 (>60) L 04/25/18 07:35 Glucose 138 mg/dL (65-99) H 04/25/18 07:35 Lactic Acid 2.8 mmol/L (0.4-2.0) H 04/25/18 07:35 Calcium 9.1 mg/dL (8.5-10.1) 04/25/18 07:35 Corrected Calcium TNP 04/25/18 07:35 Total Bilirubin 0.40 mg/dL (0.2-1.0) 04/25/18 07:35 AST 16 Units/L (15-37) 04/25/18 07:35 ALT 23 Units/L (12-78) 04/25/18 07:35 Alkaline Phosphatase 170 Units/L (46-116) H 04/25/18 07:35 C-Reactive Protein 18.00 mg/L (0-3.0) H 04/25/18 07:35 Total Protein 6.8 g/dL (6.4-8.2) 04/25/18 07:35 Albumin 3.4 g/dL (3.4-5.0) 04/25/18 07:35 Globulin 3.4 g/dL (2.5-4.5) 04/25/18 07:35 Albumin/Globulin Ratio 1.0 Ratio (1.1-2.1) L 04/25/18 07:35 Specimen Type Catherized urine 04/25/18 08:40 Urine Color Yellow (YELLOW) 04/25/18 08:40 Urine Appearance Cloudy (CLEAR) 04/25/18 08:40 Urine pH 5.0 (5.0 - 8.0) 04/25/18 08:40 Ur Specific [place] 1.030 (1.000-1.030) 04/25/18 08:40 Urine Protein 2+ (NEGATIVE) 04/25/18 08:40 Urine Glucose (UA) Negative (NEGATIVE) 04/25/18 08:40 Urine Ketones 1+ (NEGATIVE) 04/25/18 08:40 Urine Occult Blood 5+ (NEGATIVE) 04/25/18 08:40 Urine Nitrite Positive (NEGATIVE) 04/25/18 08:40 Urine Bilirubin Negative (NEGATIVE) 04/25/18 08:40 Urine Urobilinogen Normal (NORMAL) 04/25/18 08:40 Ur Leukocyte Esterase 2+ (NEGATIVE) 04/25/18 08:40 Urine RBC 10-20 /HPF (NONE SEEN) 04/25/18 08:40 Urine WBC 10-20 /HPF (NONE SEEN) 04/25/18 08:40 Ur Squamous Epith Cells Many /HPF (NEGATIVE) 04/25/18 08:40 Amorphous Sediment 1+ /HPF (NEGATIVE) 04/25/18 08:40 Urine Bacteria 1+ /HPF (NEGATIVE) 04/25/18 08:40 Urine Mucus Moderate /HPF (NEGATIVE) 04/25/18 08:40 Ur Culture Indicated? Yes/culture set up 04/25/18 08:40 Other Results Comments: Cardiomegaly and aortic dilatation. Low volume lung with elev ated right diaphragm. Overlying anatomy obscures the upper lungs and mediastinum. XRAY XRAY Interpreted by: Radiologist Diagnosis Discharge Problem: Cough, Seizure disorder, Acute hypernatremia UTI (urinary tract infection) Qualifiers: Urinary tract infection type: acute cystitis Hematuria presence: with hematuria Qualified Code(s): N30.01 - Acute cystitis with hematuria
[2018-04-25] MEDS ORDERED: ZOSYN VIAL 3.375 GRAMS IV ONE (09:01)
[2018-04-25] MEDS ORDERED: NS 100 ML IV 100 ML IV ONE (09:02)
[2018-04-25 09:13] LABS: APPEARANCE,URINE CLOUDY (CLEAR); BACTERIA,URINE 1+ /HPF (NEGATIVE); BILIRUBIN,URINE NEGATIVE (NEGATIVE); BLOOD/HEMOGLOBIN,URINE 5+ (NEGATIVE); COLOR,URINE YELLOW (YELLOW); GLUCOSE, URINE NEGATIVE (NEGATIVE); KETONES,URINE 1+ (NEGATIVE); LEUKOCYTE ESTERASE ,URINE 2+ (NEGATIVE); NITRITES,URINE POSITIVE (NEGATIVE); PROTEIN,URINE 2+ (NEGATIVE); SQUAMOUS EPITHELIAL CELL,UR MANY /HPF (NEGATIVE); UROBILINOGEN,URINE NORMAL (NORMAL)
[2018-04-25 09:14] LABS: AMORPHOUS SEDIMENT,UR 1+ /HPF (NEGATIVE); MUCUS,URINE MODERATE /HPF (NEGATIVE)
[2018-04-25] MEDS: ZOSYN VIAL 3.375 GRAMS 3.375 G in NS 100 ML IV + SPIKE MINIBAG* 100 ML IV SCH (09:24)
[2018-04-25] MEDS: NS 1000 ML 1,000 ML IV SCH (09:24)
--- NOTE | 2018-04-25 09:35 | RAD ---
Exam: AP chest History: Seizure Comparison reference 7:27 a.m. 04/25/2018 Findings: Continued upper normal heart size with arteriosclerotic aorta. Suspect mild atelectasis retrocardiac left lower lung. Marked elevation of diaphragm obscures the posterior right lower lobe. Gas containing bowel is interposed between the right hemidiaphragm and the liver. There is no evidence for pneumonia, pneumothorax or pulmonary edema. Impression: Small focal atelectasis left lung base. Nonspecific elevation right hemidiaphragm. Negative otherwise. Reported By:
[2018-04-25] MEDS ORDERED: ROBITUSSIN AC PO ONE (12:11)
[2018-04-25] MEDS ORDERED: ROBITUSSIN AC ONE (12:15)
[2018-04-25] MEDS ORDERED: TYGACIL 50 MG VIAL 100 MG in NS 100 ML IV 100 ML IV ONE (14:13)
[2018-04-25] MEDS ORDERED: NS 1/2 1000 ML IV 1,000 ML IV SCH (15:00)
[2018-04-25] MEDS: TUSSIONEX PENNKINETIC SUSP PO PRN (16:04)
[2018-04-25] MEDS: ARTIFICIAL TEARS DROPS EACHEYE SCH ×2 (16:04→22:00)
[2018-04-25] MEDS ORDERED: ROBITUSSIN DM PO SCH (17:00)
[2018-04-25] MEDS: MERREM VIAL 500 MG in NS 100 ML IV + SPIKE MINIBAG* 100 ML IV SCH (20:45)
[2018-04-25] MEDS ORDERED: [UNRECOGNIZED DRUG - OTHER] PO SCH (21:00)
[2018-04-25] MEDS ORDERED: DEXTROMETHORPHAN PO SCH (21:00)
[2018-04-25] MEDS ORDERED: DOXYLAMINE PO SCH (21:00)
[2018-04-25] MEDS: MICRO K EXTEN CAP 10 MEQ PO SCH ×2 (21:44→22:00)
[2018-04-25] MEDS: REMERON PO SCH ×2 (21:44→22:00)
[2018-04-25] MEDS: VITAMIN D3 PO SCH ×2 (21:45→22:00)
[2018-04-25] MEDS: ZANTAC PO SCH ×2 (21:45→22:00)
[2018-04-25] MEDS: LIORESAL PO SCH ×2 (21:45→22:00)
[2018-04-25] MEDS: LAMICTAL TAB 100 MG PO SCH ×2 (21:45→22:00)
[2018-04-25] MEDS: MIRALAX POWDER (255 GRAMS BTL) PO SCH ×2 (21:48→22:00)
[2018-04-26] MEDS: NS 1000 ML 1,000 ML IV SCH ×3 (02:04→13:25)
[2018-04-26] MEDS: MERREM VIAL 500 MG in NS 100 ML IV + SPIKE MINIBAG* 100 ML IV SCH ×3 (06:08→21:22)
[2018-04-26] MEDS: MICRO K EXTEN CAP 10 MEQ PO SCH ×4 (06:08→21:20)
[2018-04-26] MEDS: ARTIFICIAL TEARS DROPS EACHEYE SCH ×3 (06:09→21:22)
--- NOTE | 2018-04-26 07:14 | DR.SEIZA ---
HPI Time Seen Time Seen by Provider: 04/25/18 07:30 Primary Care Physician Primary Care Physician: CARLI Dawson Chief Complaint:: tonh staff stated she had a seizure at 630 this morning. pt stated she always has seizures, pt stated she was here cause she has been coughing and short of breath for 2 days. Source History Provided: Patient, Family Member and Law Enforcement Mode of Arrival Mode of Arrival: Stretcher Timing Onset of Chief Complaint: 04/23/18 PMH PMH Past Surgical History: Yes Surgical History: Cholecystectomy Family History History of Family Medical Conditions: Yes Family Medical History: Diabetes Mellitus, Cancer and Hypertension Social History Does patient currently use any type of tobacco product: No Have you used tobacco products in the last 12 months: No Type of Tobacco Use: None Does any household member use tobacco: No Alcohol Use: None Do you use any recreational Drugs:: No Lives With: Other Lives Where: [facility] infectious screening In the last 2 months have you had wt loss of >10#?: NO Have you had fever, night sweats or hemotysis?: No Have you traveled outside the country in the last 6 months?: No Isolation: Standard PE Vital Signs Vitals: Temperature 100.2 F Pulse Rate [Left Brachial] 99 Pulse Rate 125 Respiratory Rate 20 Blood Pressure [Left Arm] 101/50 Blood Pressure [Right Arm] 100/47 Blood Pressure 128/60 O2 Sat by Pulse Oximetry 93 General Limitations: No Limitations and Altered Mental Status General Appearance: Alert and In No Apparent Distress Head Head Exam: Normal Inspection, Atraumatic and Normocephalic Eyes Eye exam: Normal Appearance, PERRL and EOMI Eyelids: Normal Inspection: Bilateral Pupils: Regular, Round: Bilateral ENT ENT Exam: Normal Exam, Normal Oropharynx and Normal External Ear Exam Mouth Exam: Normal Inspection Neck Neck Exam: Normal Inspection and Full ROM Chest Chest Inspection: Normal Inspection and Symmetric Chest Wall Rise Respiratory Respiratory Exam: Normal Lung Sounds Bilat Respiratory Exam: Bilateral: Clear to Auscultation Cardiovascular Cardiovascular Exam: Regular Rate and Normal Rhythm Abdominal Exam Abdominal Exam: Normal Inspection and Soft Extremities Extremities Exam: Normal Inspection and Full ROM Back Back Exam: Normal Inspection and Full ROM Neurologic Neurological Exam: Alert, Oriented X3 and CN II-XII Intact Cranial Nerve Exam: EOM Function (II, III, IV, ): Normal Psychiatric Psychiatric Exam: Normal Affect, Normal Mood and Flat Affect Skin Skin Exam: Warm, Dry and Intact ROR Labs Reviewed Result Diagrams: 04/25/18 07:35 04/25/18 07:35 Laboratory: 04/25/18 11:19 Sputum - Expectorated Sputum Sputum Culture - Preliminary 04/25/18 11:19 Sputum - Expectorated Sputum - Final 04/25/18 08:40 Urine,Catheterized Urine Culture - Preliminary WBC 16.0 X10^3/uL (3.6-10.0) H 04/25/18 07:35 RBC 4.66 X10^6/uL (3.5-5.4) 04/25/18 07:35 Hgb 13.7 g/dL (12.0-16.0) 04/25/18 07:35 Hct 41.8 % (36.0-47.0) 04/25/18 07:35 MCV 89.7 fL (80.0-100.0) 04/25/18 07:35 MCH 29.5 pg (27.0-34.0) 04/25/18 07:35 MCHC 32.8 g/dL (33.0-35.0) L 04/25/18 07:35 RDW 14.4 % (11.6-16.5) 04/25/18 07:35 Plt Count 285 X10^3/uL (150.0-450.0) 04/25/18 07:35 MPV 8.6 fL (7.4-11.0) 04/25/18 07:35 Neut % (Auto) 87.9 % (42.0-75.0) H 04/25/18 07:35 Lymph % (Auto) 4.4 % (21.0-51.0) L 04/25/18 07:35 [place] % (Auto) 7.2 % (0.0-13.0) 04/25/18 07:35 Eos % (Auto) 0.2 % (0.9-2.9) L 04/25/18 07:35 Baso % (Auto) 0.3 % (0.2-1.0) 04/25/18 07:35 Neut # (Auto) 14.0 x10^3/uL (2.2-4.8) H 04/25/18 07:35 Lymph # (Auto) 0.7 X10^3/uL (1.3-2.9) L 04/25/18 07:35 [place] # (Auto) 1.1 x10^3/uL (0.3-0.8) H 04/25/18 07:35 Eos # (Auto) 0.0 x10^3/uL (0.0-0.2) 04/25/18 07:35 Baso # (Auto) 0.0 X10^3/uL (0.0-0.1) 04/25/18 07:35 Absolute Nucleated RBC 0.0 /100WBC 04/25/18 07:35 Sodium 147 mmol/L (136-145) H 04/25/18 07:35 Corrected Sodium 148 mmol/L (136-145) H 04/25/18 07:35 Potassium 3.9 mmol/L (3.5-5.1) 04/25/18 07:35 Chloride 110 mmol/L (98-107) H 04/25/18 07:35 Carbon Dioxide 25.1 mmol/L (21-32) 04/25/18 07:35 BUN 21 mg/dL (7-18) H 04/25/18 07:35 Creatinine 1.08 mg/dL (0.55-1.02) H 04/25/18 07:35 Est GFR (MDRD) Af Amer > 60 (>60) 04/25/18 07:35 Est GFR (MDRD) Non-Af 52 (>60) L 04/25/18 07:35 Glucose 138 mg/dL (65-99) H 04/25/18 07:35 Lactic Acid 2.8 mmol/L (0.4-2.0) H 04/25/18 07:35 Calcium 9.1 mg/dL (8.5-10.1) 04/25/18 07:35 Corrected Calcium TNP 04/25/18 07:35 Total Bilirubin 0.40 mg/dL (0.2-1.0) 04/25/18 07:35 AST 16 Units/L (15-37) 04/25/18 07:35 ALT 23 Units/L (12-78) 04/25/18 07:35 Alkaline Phosphatase 170 Units/L (46-116) H 04/25/18 07:35 C-Reactive Protein 18.00 mg/L (0-3.0) H 04/25/18 07:35 Total Protein 6.8 g/dL (6.4-8.2) 04/25/18 07:35 Albumin 3.4 g/dL (3.4-5.0) 04/25/18 07:35 Globulin 3.4 g/dL (2.5-4.5) 04/25/18 07:35 Albumin/Globulin Ratio 1.0 Ratio (1.1-2.1) L 04/25/18 07:35 Specimen Type Catherized urine 04/25/18 08:40 Urine Color Yellow (YELLOW) 04/25/18 08:40 Urine Appearance Cloudy (CLEAR) 04/25/18 08:40 Urine pH 5.0 (5.0 - 8.0) 04/25/18 08:40 Ur Specific [place] 1.030 (1.000-1.030) 04/25/18 08:40 Urine Protein 2+ (NEGATIVE) 04/25/18 08:40 Urine Glucose (UA) Negative (NEGATIVE) 04/25/18 08:40 Urine Ketones 1+ (NEGATIVE) 04/25/18 08:40 Urine Occult Blood 5+ (NEGATIVE) 04/25/18 08:40 Urine Nitrite Positive (NEGATIVE) 04/25/18 08:40 Urine Bilirubin Negative (NEGATIVE) 04/25/18 08:40 Urine Urobilinogen Normal (NORMAL) 04/25/18 08:40 Ur Leukocyte Esterase 2+ (NEGATIVE) 04/25/18 08:40 Urine RBC 10-20 /HPF (NONE SEEN) 04/25/18 08:40 Urine WBC 10-20 /HPF (NONE SEEN) 04/25/18 08:40 Ur Squamous Epith Cells Many /HPF (NEGATIVE) 04/25/18 08:40 Amorphous Sediment 1+ /HPF (NEGATIVE) 04/25/18 08:40 Urine Bacteria 1+ /HPF (NEGATIVE) 04/25/18 08:40 Urine Mucus Moderate /HPF (NEGATIVE) 04/25/18 08:40 Ur Culture Indicated? Yes/culture set up 04/25/18 08:40 Diagnosis Discharge Problem: Cough, Seizure disorder, Acute hypernatremia UTI (urinary tract infection) Qualifiers: Urinary tract infection type: acute cystitis Hematuria presence: with hematuria Qualified Code(s): N30.01 - Acute cystitis with hematuria
[2018-04-26] MEDS: ZOSYN VIAL 3.375 GRAMS 3.375 G in NS 100 ML IV + SPIKE MINIBAG* 100 ML IV SCH (07:56)
[2018-04-26] MEDS: LAMICTAL TAB 100 MG PO SCH ×2 (08:15→21:20)
[2018-04-26] MEDS: LIORESAL PO SCH ×2 (08:15→21:21)
[2018-04-26] MEDS: ZANTAC PO SCH ×2 (08:15→21:21)
[2018-04-26] MEDS: LINZESS PO SCH (08:15)
[2018-04-26 09:23] LABS: BASOPHILS % (AUTO) 0.4 % (0.2-1.0); EOSINOPHILS # (AUTO) 0.2 x10^3/uL (0.0-0.2); EOSINOPHILS % (AUTO) 1.5 % (0.9-2.9); HEMATOCRIT 39.7 % (36.0-47.0); HEMOGLOBIN 12.9 g/dL (12.0-16.0); LYMPHOCYTES # (AUTO) 0.7 X10^3/uL (1.3-2.9); LYMPHOCYTES % (AUTO) 5.7 % (21.0-51.0); MEAN CORPUSCULAR HEMOGLOBIN 29.2 pg (27.0-34.0); MEAN CORPUSCULAR HGB CONC 32.6 g/dL (33.0-35.0); MEAN CORPUSCULAR VOLUME 89.4 fL (80.0-100.0); MEAN PLATELET VOLUME 8.7 fL (7.4-11.0); NEUTROPHILS # (AUTO) 10.4 x10^3/uL (2.2-4.8); NEUTROPHILS % (AUTO) 84.4 % (42.0-75.0); PLATELET COUNT 242 X10^3/uL (150.0-450.0); RED BLOOD COUNT 4.44 X10^6/uL (3.5-5.4); RED CELL DISTRIBUTION WIDTH 14.2 % (11.6-16.5); WHITE BLOOD COUNT 12.3 X10^3/uL (3.6-10.0)
[2018-04-26 09:33] LABS: ALANINE AMINOTRANSFERASE 23 Units/L (12-78); ALBUMIN 2.9 g/dL (3.4-5.0); ALKALINE PHOSPHATASE 133 Units/L (46-116); ASPARTATE AMINO TRANSFERASE 40 Units/L (15-37); BLOOD UREA NITROGEN 29 mg/dL (7-18); CALCIUM 8.5 mg/dL (8.5-10.1); CARBON DIOXIDE 25.5 mmol/L (21-32); CHLORIDE 112 mmol/L (98-107); COR CA(FOR HYPOALB) 9.4 mg/dL (8.5-10.1); COR NA(FOR HYPERGLY) 145 mmol/L (136-145); CREATININE 0.82 mg/dL (0.55-1.02); SODIUM 145 mmol/L (136-145); eGFR NON BLACK RACES > 60 (>60)
[2018-04-26 09:39] LABS: LACTIC ACID 0.9 mmol/L (0.4-2.0)
[2018-04-26] MEDS: VOLTAREN 1 % GEL MULTI DOSE TUBE TOP SCH ×2 (09:54→21:22)
[2018-04-26] MEDS: ROBITUSSIN DM PO PRN ×2 (12:38→21:20)
--- NOTE | 2018-04-26 12:38 | DR.H&P ---
H&P - History & Physical for Day of: H&P Date: 04/25/18 - Chief Complaint Chief Complaint: tonh staff stated she had a seizure at 630 this morning. pt stated she always has seizures, pt stated she was here cause she has been coughing and short of breath for 2 days, fever - History of Present Illness History of Present Illness: 77 WF ER ADMISSION AFTER PRESENTING FROM [facility] WITH CO SEIZURE ACTIVITY, RECENT ILLNESS OF FEVER, URI WITH COUGH AND WHEEZING AND UTI. PT HAD UA IN ER +NITRITES, UC SET UP. PT HAS PMH OF HTN, OA, CVA, SEIZURE DISORDER. PT ADMITTED FOR TREATMENT OF ACUTE ILLNESS - Past Medical History Past Medical History: Anxiety, CVA, GERD - Past Surgical History Surgical History: Cholecystectomy - Family History Family Medical History: Diabetes Mellitus, Cancer, Hypertension - Social History Does patient currently use any type of tobacco product: No Have you used tobacco products in the last 12 months: No Type of Tobacco Use: None Does any household member use tobacco: No Alcohol Use: None Drug Use: None - Medications Home Medications: peach Allergy (Verified 04/25/18 07:04) sulfamethoxazole Allergy (Verified 04/25/18 07:04) tramadol Allergy (Verified 04/25/18 07:04) RYE Allergy (Uncoded 04/25/18 07:04) CONTINUE taking the following medications diclofenac sodium [Voltaren] 2 g TOPICAL BID 04/25/18 [History] doxylamine-dextromethorphan [Robitussin Nighttime Cough DM] 5 ml PO BID 04/25/18 [History] - Review of Systems Constitutional: Fever, Weakness Eyes: No Symptoms Reported ENT: No Symptoms Reported Respiratory: Cough, Shortness of Breath, Wheezing Cardiovascular: No Symptoms Reported. denies: Edema Gastrointestinal: No Symptoms Reported, Constipation Genitourinary: Incontinence Musculoskeletal: No Symptoms Reported Skin: No Symptoms Reported Neurological: Weakness - Physical Exam Vital Signs: Temperature 98.6 F Pulse Rate [Left Brachial] 87 Pulse Rate 125 Respiratory Rate 20 Blood Pressure [Left Arm] 124/62 Blood Pressure [Right Arm] 100/47 Blood Pressure 128/60 O2 Sat by Pulse Oximetry 97 Oriented: Normal Eyes: Normal Ear: Normal Nose: Normal Throat: Normal Respiratory: Wheezes Throughout, RLL Diminished, LLL Diminished Cardiovascular: Normal : Normal Auscultation: Bowel Sounds: Normal, Absent Tenderness: Normal Skin: Normal Musculoskeletal: Right, Left, Leg, Back:Lumbar, Motor Deficit Psychiatric: Anxiety Affect: Anxious Speech Pattern: Clear, Appropriate - Assessment/Plan (1) UTI (urinary tract infection) Qualifiers: Urinary tract infection type: acute cystitis Hematuria presence: with hematuria Qualified Code(s): N30.01 - Acute cystitis with hematuria Status: Acute Plan: ADMIT, GENTLE IV HYDRATION, BLOOD AND URINE CULTURE. RESP CONSULT, IV ATBX, RESUME HOME MEDICATION. STRICT I & OS, SEIZURE PRECAUTIONS. ENCOURAGE ORAL HYDRATION (2) Seizure disorder Status: Acute (3) History of CVA (cerebrovascular accident) Status: Acute (4) Acute hypernatremia Status: Acute - Allergies Allergies/Adverse Reactions: Allergies Allergy/AdvReac Type Severity Reaction Status Date / Time peach Allergy Verified 04/25/18 07:04 sulfamethoxazole Allergy Verified 04/25/18 07:04 tramadol Allergy Verified 04/25/18 07:04 RYE Allergy Uncoded 04/25/18 07:04
--- NOTE | 2018-04-26 12:43 | PCM.PROG ---
Addendum entered and electronically signed by HIMANSHU LUNDBERG 04/26/18 12:43: CORRECTION TO PRIOR ENTRY, PT DID NOT RECEIVE IV ROCEPHIN, SHE HAD TYGACIL IN ER AND CURRENTLY ON MEROPENEM IV Original Note: Progress Note - Progress Note for Day of Date of Exam: 04/26/18 - Subjective Subjective: 77 WF ER ADMISSION ON 04/25 WITH DEHYDRATION, HYPERNATREMIA, SEIZURE ACTIVITY, UTI. PT IS CURRENTLY ON IV ROCEPHIN WITH URINE CULTURE PENDING. WBC DOWN TO 12.3 THIS AM, BUN 29/CREAT 0.82, NA 145. PLAN TO REPEAT CXR, CONTINUE DUO NEBS WITH BUDESONIDE BID. ENCOURAGED ORAH HYDRATION AND REPEAT AM LABS. - Past Medical Family Social History Past Med/Fam/Surg Hx: No changes since H&P Allergies: Allergies peach Allergy (Verified 04/25/18 07:04) sulfamethoxazole Allergy (Verified 04/25/18 07:04) tramadol Allergy (Verified 04/25/18 07:04) RYE Allergy (Uncoded 04/25/18 07:04) - Review of Systems ROS: No change since H&P - Vital Signs and I&O's Vital Signs: Temperature 98.6 F Pulse Rate [Left Brachial] 87 Pulse Rate 125 Respiratory Rate 20 Blood Pressure [Left Arm] 124/62 Blood Pressure [Right Arm] 100/47 Blood Pressure 128/60 O2 Sat by Pulse Oximetry 97 Intake and Output: Intake & Output 04/24/18 04/25/18 04/26/18 04/27/18 11:59 11:59 11:59 11:59 Intake Total 340 / 340 Balance 340 / 340 - Physical Exam Oriented: Normal Eyes: Normal Ear: Normal Nose: Normal Throat: Normal Respiratory: Diminished, Wheezes Cardiovascular: Normal : Normal Auscultation: Bowel Sounds: Normal, Absent Tenderness: Normal Skin: Normal Musculoskeletal: Right, Left, Leg, Back:Lumbar, Motor Deficit Psychiatric: Anxiety Affect: Anxious Speech Pattern: Clear, Appropriate - Laboratory and Diagnostics Result Diagrams: 04/26/18 09:06 04/26/18 09:06 Labs: 04/25/18 11:19 Sputum - Expectorated Sputum Sputum Culture - Preliminary 04/25/18 11:19 Sputum - Expectorated Sputum - Final 04/25/18 08:40 Urine,Catheterized Urine Culture - Preliminary Laboratory WBC 12.3 X10^3/uL (3.6-10.0) H 04/26/18 09:06 RBC 4.44 X10^6/uL (3.5-5.4) 04/26/18 09:06 Hgb 12.9 g/dL (12.0-16.0) 04/26/18 09:06 Hct 39.7 % (36.0-47.0) 04/26/18 09:06 MCV 89.4 fL (80.0-100.0) 04/26/18 09:06 MCH 29.2 pg (27.0-34.0) 04/26/18 09:06 MCHC 32.6 g/dL (33.0-35.0) L 04/26/18 09:06 RDW 14.2 % (11.6-16.5) 04/26/18 09:06 Plt Count 242 X10^3/uL (150.0-450.0) 04/26/18 09:06 MPV 8.7 fL (7.4-11.0) 04/26/18 09:06 Neut % (Auto) 84.4 % (42.0-75.0) H 04/26/18 09:06 Lymph % (Auto) 5.7 % (21.0-51.0) L 04/26/18 09:06 [place] % (Auto) 8.0 % (0.0-13.0) 04/26/18 09:06 Eos % (Auto) 1.5 % (0.9-2.9) 04/26/18 09:06 Baso % (Auto) 0.4 % (0.2-1.0) 04/26/18 09:06 Neut # (Auto) 10.4 x10^3/uL (2.2-4.8) H 04/26/18 09:06 Lymph # (Auto) 0.7 X10^3/uL (1.3-2.9) L 04/26/18 09:06 [place] # (Auto) 1.0 x10^3/uL (0.3-0.8) H 04/26/18 09:06 Eos # (Auto) 0.2 x10^3/uL (0.0-0.2) 04/26/18 09:06 Baso # (Auto) 0.0 X10^3/uL (0.0-0.1) 04/26/18 09:06 Absolute Nucleated RBC 0.0 /100WBC 04/26/18 09:06 Sodium 145 mmol/L (136-145) 04/26/18 09:06 Corrected Sodium 145 mmol/L (136-145) 04/26/18 09:06 Potassium 3.6 mmol/L (3.5-5.1) 04/26/18 09:06 Chloride 112 mmol/L (98-107) H 04/26/18 09:06 Carbon Dioxide 25.5 mmol/L (21-32) 04/26/18 09:06 BUN 29 mg/dL (7-18) H 04/26/18 09:06 Creatinine 0.82 mg/dL (0.55-1.02) 04/26/18 09:06 Est GFR (MDRD) Af Amer > 60 (>60) 04/26/18 09:06 Est GFR (MDRD) Non-Af > 60 (>60) 04/26/18 09:06 Glucose 115 mg/dL (65-99) H 04/26/18 09:06 Lactic Acid 0.9 mmol/L (0.4-2.0) 04/26/18 09:06 Calcium 8.5 mg/dL (8.5-10.1) 04/26/18 09:06 Corrected Calcium 9.4 mg/dL (8.5-10.1) 04/26/18 09:06 Total Bilirubin 0.40 mg/dL (0.2-1.0) 04/26/18 09:06 AST 40 Units/L (15-37) H 04/26/18 09:06 ALT 23 Units/L (12-78) 04/26/18 09:06 Alkaline Phosphatase 133 Units/L (46-116) H 04/26/18 09:06 C-Reactive Protein 18.00 mg/L (0-3.0) H 04/25/18 07:35 Total Protein 6.0 g/dL (6.4-8.2) L 04/26/18 09:06 Albumin 2.9 g/dL (3.4-5.0) L 04/26/18 09:06 Globulin 3.1 g/dL (2.5-4.5) 04/26/18 09:06 Albumin/Globulin Ratio 0.9 Ratio (1.1-2.1) L 04/26/18 09:06 Specimen Type Catherized urine 04/25/18 08:40 Urine Color Yellow (YELLOW) 04/25/18 08:40 Urine Appearance Cloudy (CLEAR) 04/25/18 08:40 Urine pH 5.0 (5.0 - 8.0) 04/25/18 08:40 Ur Specific [place] 1.030 (1.000-1.030) 04/25/18 08:40 Urine Protein 2+ (NEGATIVE) 04/25/18 08:40 Urine Glucose (UA) Negative (NEGATIVE) 04/25/18 08:40 Urine Ketones 1+ (NEGATIVE) 04/25/18 08:40 Urine Occult Blood 5+ (NEGATIVE) 04/25/18 08:40 Urine Nitrite Positive (NEGATIVE) 04/25/18 08:40 Urine Bilirubin Negative (NEGATIVE) 04/25/18 08:40 Urine Urobilinogen Normal (NORMAL) 04/25/18 08:40 Ur Leukocyte Esterase 2+ (NEGATIVE) 04/25/18 08:40 Urine RBC 10-20 /HPF (NONE SEEN) 04/25/18 08:40 Urine WBC 10-20 /HPF (NONE SEEN) 04/25/18 08:40 Ur Squamous Epith Cells Many /HPF (NEGATIVE) 04/25/18 08:40 Amorphous Sediment 1+ /HPF (NEGATIVE) 04/25/18 08:40 Urine Bacteria 1+ /HPF (NEGATIVE) 04/25/18 08:40 Urine Mucus Moderate /HPF (NEGATIVE) 04/25/18 08:40 Ur Culture Indicated? Yes/culture set up 04/25/18 08:40 - Plan (1) UTI (urinary tract infection) Status: Acute Qualifiers: Urinary tract infection type: acute cystitis Hematuria presence: with hematuria Qualified Code(s): N30.01 - Acute cystitis with hematuria Plan: CONTINUE GENTLE IV HYDRATION, BLOOD AND URINE CULTURE PENDING. RESP CONSULT, IV ATBX, RESUME HOME MEDICATION. STRICT I & OS, SEIZURE PRECAUTIONS. ENCOURAGE ORAL HYDRATION (2) Seizure disorder Status: Acute (3) History of CVA (cerebrovascular accident) Status: Acute (4) Acute hypernatremia Status: Acute
--- NOTE | 2018-04-26 16:28 | RAD ---
HISTORY: Follow-up pneumonia Study: Chest AP portable Comparison: 04/25/2018 Findings: The heart is upper limits normal in size. No congestive heart failure is noted. The aorta is calcified. Marked elevation of the right hemidiaphragm is again identified. The lungs appear free of acute alveolar infiltrates. There is a focus of subsegmental atelectasis in the left lung base. The bony thorax is unremarkable. IMPRESSION: Subsegmental atelectasis left lung base Chronic marked elevation of the right hemidiaphragm Reported By:
[2018-04-26] MEDS: DUONEB 0.5 MG/3 MG NEB SCH ×2 (17:10→20:01)
[2018-04-26] MEDS: PULMICORT NEB TX 0.5 MG NEB SCH (20:01)
[2018-04-26] MEDS: VITAMIN D3 PO SCH (21:21)
[2018-04-26] MEDS: REMERON PO SCH (21:21)
[2018-04-26] MEDS: MIRALAX POWDER (255 GRAMS BTL) PO SCH (21:21)
[2018-04-27] MEDS: TUSSIONEX PENNKINETIC SUSP PO PRN (00:51)
[2018-04-27] MEDS: ROBITUSSIN DM PO PRN (03:28)
[2018-04-27 05:31] LABS: BASOPHILS # (AUTO) 0.1 X10^3/uL (0.0-0.1); EOSINOPHILS # (AUTO) 0.2 x10^3/uL (0.0-0.2); EOSINOPHILS % (AUTO) 3.5 % (0.9-2.9); HEMATOCRIT 37.2 % (36.0-47.0); LYMPHOCYTES # (AUTO) 0.8 X10^3/uL (1.3-2.9); LYMPHOCYTES % (AUTO) 12.1 % (21.0-51.0); MEAN CORPUSCULAR HEMOGLOBIN 29.2 pg (27.0-34.0); MEAN CORPUSCULAR HGB CONC 32.2 g/dL (33.0-35.0); MEAN CORPUSCULAR VOLUME 90.9 fL (80.0-100.0); MEAN PLATELET VOLUME 9.4 fL (7.4-11.0); MONOCYTES # (AUTO) 0.9 x10^3/uL (0.3-0.8); MONOCYTES % (AUTO) 13.7 % (0.0-13.0); NEUTROPHILS # (AUTO) 4.6 x10^3/uL (2.2-4.8); NEUTROPHILS % (AUTO) 69.7 % (42.0-75.0); PLATELET COUNT 187 X10^3/uL (150.0-450.0); RED BLOOD COUNT 4.09 X10^6/uL (3.5-5.4); RED CELL DISTRIBUTION WIDTH 14.5 % (11.6-16.5); WHITE BLOOD COUNT 6.5 X10^3/uL (3.6-10.0)
[2018-04-27 05:35] LABS: ALANINE AMINOTRANSFERASE 21 Units/L (12-78); ALBUMIN 2.5 g/dL (3.4-5.0); ALKALINE PHOSPHATASE 122 Units/L (46-116); ASPARTATE AMINO TRANSFERASE 34 Units/L (15-37); BLOOD UREA NITROGEN 23 mg/dL (7-18); CALCIUM 8.1 mg/dL (8.5-10.1); CARBON DIOXIDE 23.5 mmol/L (21-32); CHLORIDE 113 mmol/L (98-107); COR CA(FOR HYPOALB) 9.3 mg/dL (8.5-10.1); CREATININE 0.72 mg/dL (0.55-1.02); SODIUM 144 mmol/L (136-145); TOTAL PROTEIN 5.3 g/dL (6.4-8.2); eGFR NON BLACK RACES > 60 (>60)
[2018-04-27] MEDS: MICRO K EXTEN CAP 10 MEQ PO SCH (05:48)
[2018-04-27] MEDS: NS 1000 ML 1,000 ML IV SCH (05:48)
[2018-04-27] MEDS: ARTIFICIAL TEARS DROPS EACHEYE SCH (05:48)
[2018-04-27] MEDS: MERREM VIAL 500 MG in NS 100 ML IV + SPIKE MINIBAG* 100 ML IV SCH (05:48)
[2018-04-27 06:07] LABS: BAND NEUTROPHILS % 1 % (0-10); PLATELET MORPHOLOGY COMMENT NORMAL (NORMAL)
[2018-04-27] MEDS: DUONEB 0.5 MG/3 MG NEB SCH ×2 (08:44→12:14)
[2018-04-27] MEDS: PULMICORT NEB TX 0.5 MG NEB SCH (08:44)
[2018-04-27] MEDS: ZANTAC PO SCH (08:47)
[2018-04-27] MEDS: LIORESAL PO SCH (08:48)
[2018-04-27] MEDS: VOLTAREN 1 % GEL MULTI DOSE TUBE TOP SCH (08:48)
[2018-04-27] MEDS: LINZESS PO SCH (08:48)
[2018-04-27] MEDS: LAMICTAL TAB 100 MG PO SCH (08:48)
[2018-04-27 13:05] VITALS: BP 115/54
== END 2018-04-27 13:10 | DRG 690 ==
LOC: ER 06:52 → MED/SURG 14:11
PROVIDERS: ADMIT Internal Medicine; ATTEND Obstetrics & Gynecology Obstetrics
DX: Z86.73 Personal history of transient ischemic attack (TIA), and cerebral infarction without residual deficits; K21.9 Gastro-esophageal reflux disease without esophagitis; Z66 Do not resuscitate; F41.8 Other specified anxiety disorders; R79.82 Elevated C-reactive protein (CRP); E87.0 Hyperosmolality and hypernatremia; G40.802 Other epilepsy, not intractable, without status epilepticus; N30.01 Acute cystitis with hematuria; E86.0 Dehydration
CPT/HCPCS: 36415; 51701; 71010; 71045; 80053; 81001; 83605; 85025; 86140; 87070; 87086; 87088; 87186; 87205; 94640; 94760; 96365; 96367; 96374; 99221; 99231; 99283; 99284; A4222; J2185; J2543; J3243; J7030; J7050; J7620; J7626

== ENCOUNTER 2023-03-08 02:57 | Inpatient (IN) ==
[2023-03-08 03:14] LABS: ABG ALLEN TEST POS; ABG BASE EXCESS 1.9 mmol/L (-2.0-2.0); ABG HCO3 26.6 mmol/L (22-26)
--- NOTE | 2023-03-08 03:14 | DR.SOBA ---
HPI Time Seen Time Seen by Provider: 03/08/23 03:08 Complaints Chief Complaint Doctors Comments: Called to individual from the left stone the patient developed some some shortness of breath and most probably aspirated. He stated the patient is during the night sometimes she has some fluids to drink and she developed some hypoxia. Patient arrived here from the half-way did not have oxygen in place and her O2 sat was 84 when she got here she was placed on 2 L of oxygen and increased to 90%. She did have a temperature of 101 upon arrival in the ER. PMH PMH Past Medical History: Anxiety, Arthritis, CVA, Depression and GERD Past Surgical History: Yes Surgical History: Cholecystectomy Family History Family Medical History: Diabetes Mellitus, Cancer and Hypertension Social History Do you use any recreational Drugs:: No ROS Review of Systems Constitutional: Fever and Other (Shortness of breath) Eyes: No Symptoms Reported ENTM: No Symptoms Reported Respiratoy: Short of Breath Cardiovascular: No Symptoms Reported Gastrointestinal/Abdominal: No Symptoms Reported Genitourinary: No Symptoms Reported Neurological: No Symptoms Reported Musculoskeletal: No Symptoms Reported Integumentary: No Symptoms Reported Hematologic/Lymphatic: No Symptoms Reported Endocrine: No Symptoms Reported Psychiatric: Depression PE Vital Signs Vitals: Vital Signs Temperature 98.4 F Temperature 101.5 F Pulse Rate 96 Pulse Rate 95 Pulse Rate 97 Pulse Rate 98 Pulse Rate 99 Pulse Rate 99 Pulse Rate 100 Pulse Rate 103 Pulse Rate 105 Pulse Rate 106 Pulse Rate 109 Pulse Rate 107 Pulse Rate 110 Pulse Rate 112 Pulse Rate 117 Respiratory Rate 29 Respiratory Rate 28 Respiratory Rate 26 Respiratory Rate 27 Respiratory Rate 27 Respiratory Rate 28 Respiratory Rate 27 Respiratory Rate 31 Respiratory Rate 32 Respiratory Rate 29 Respiratory Rate 38 Respiratory Rate 33 Respiratory Rate 34 Respiratory Rate 29 Respiratory Rate 32 Blood Pressure 125/59 Blood Pressure 126/60 Blood Pressure 116/57 Blood Pressure 129/61 Blood Pressure 129/61 Blood Pressure 130/61 Blood Pressure 126/60 Blood Pressure 127/58 Blood Pressure 132/61 Blood Pressure 141/60 Blood Pressure 119/59 Blood Pressure 126/59 Blood Pressure 126/59 Blood Pressure 144/61 Blood Pressure 139/58 O2 Sat by Pulse Oximetry 93 O2 Sat by Pulse Oximetry 93 O2 Sat by Pulse Oximetry 93 O2 Sat by Pulse Oximetry 93 O2 Sat by Pulse Oximetry 93 O2 Sat by Pulse Oximetry 92 O2 Sat by Pulse Oximetry 92 O2 Sat by Pulse Oximetry 91 O2 Sat by Pulse Oximetry 91 O2 Sat by Pulse Oximetry 91 O2 Sat by Pulse Oximetry 90 O2 Sat by Pulse Oximetry 93 O2 Sat by Pulse Oximetry 91 O2 Sat by Pulse Oximetry 91 O2 Sat by Pulse Oximetry 84 General Limitations: Other (shortness of breath) General Appearance: In Distress (moderate distress) Head Head Exam: Normal Inspection, Atraumatic and Normocephalic Eyes Eye exam: Normal Appearance ENT ENT Exam: Normal Exam and Normal Oropharynx Neck Neck Exam: Normal Inspection, Full ROM and Trachea Midline Chest Chest Inspection: Normal Inspection and Symmetric Chest Wall Rise Respiratory Respiratory Exam: Other (rales and rhonchi bilaterally) Respiratory Exam: Bilateral: Rales and Bilateral: Rhonchi Cardiovascular Cardiovascular Exam: Tachycardia Abdominal Exam Abdominal Exam: Normal Inspection and Normal Bowel Sounds Extremities Extremities Exam: Normal Inspection Back Back Exam: Normal Inspection Psychiatric Psychiatric Exam: Agitated MDM Differential Diagnosis Differential Diagnosis: CHF, COPD, Pneumonia, Respiratory Insufficiency and URI COURSE Treatment Treatment: Patient remained relatively stable she was placed on oxygen at 3 L with per minute which her O2 sat came up to 92 to 95%. The patient was found to have a florid urinary tract infection and was given 1 g of Rocephin IV in the ER. The patient had COVID respiratory panel done that was negative the patient is a DNR but we actually called to the on-call physician Dr. Fish and she agreed to admit the patient for further treatment of possible aspiration pneumonia with pneumonia and urinary tract infection and hypoxia. Had only a slight WBC of 11.7 the rest of the metabolic panel was pretty much normal except she had a glucose of 303 and her lactic acid level was normal at 1.0 EKG shows sinus tachycardia with the initial cardiac enzymes troponin was 4.1 and her BNP was only 53.4. ROR Labs Reviewed Laboratory Results Reviewed?: Yes 03/08/23 03:10 03/08/23 03:10 Laboratory: WBC 11.7 X10^3/uL (3.6-10.0) H 03/08/23 03:10 RBC 4.49 X10^6/uL (3.5-5.4) 03/08/23 03:10 Hgb 12.9 g/dL (12.0-16.0) 03/08/23 03:10 Hct 40.4 % (36.0-47.0) 03/08/23 03:10 MCV 90.0 fL (80.0-100.0) 03/08/23 03:10 MCH 28.7 pg (27.0-34.0) 03/08/23 03:10 MCHC 31.8 g/dL (33.0-35.0) L 03/08/23 03:10 RDW 15.1 % (11.6-16.5) 03/08/23 03:10 Plt Count 303 X10^3/uL (150.0-450.0) 03/08/23 03:10 MPV 8.7 fL (7.4-11.0) 03/08/23 03:10 Neut % (Auto) 76.1 % (42.0-75.0) H 03/08/23 03:10 Lymph % (Auto) 11.3 % (21.0-51.0) L 03/08/23 03:10 [place] % (Auto) 11.0 % (0.0-13.0) 03/08/23 03:10 Eos % (Auto) 1.2 % (0.9-2.9) 03/08/23 03:10 Baso % (Auto) 0.4 % (0.2-1.0) 03/08/23 03:10 Neut # (Auto) 8.9 x10^3/uL (2.2-4.8) H 03/08/23 03:10 Lymph # (Auto) 1.3 X10^3/uL (1.3-2.9) 03/08/23 03:10 [place] # (Auto) 1.3 x10^3/uL (0.3-0.8) H 03/08/23 03:10 Eos # (Auto) 0.1 x10^3/uL (0.0-0.2) 03/08/23 03:10 Baso # (Auto) 0.1 X10^3/uL (0.0-0.1) 03/08/23 03:10 Absolute Nucleated RBC 0.0 /100WBC 03/08/23 03:10 Sample Site Rr 03/08/23 03:09 ABG pH 7.420 (7.35-7.45) 03/08/23 03:09 ABG pCO2 41.0 mmHg (35.0-45.0) 03/08/23 03:09 ABG pO2 61.0 mmHg (80.0-100.0) L 03/08/23 03:09 ABG HCO3 26.6 mmol/L (22-26) H 03/08/23 03:09 ABG O2 Saturation 91.0 % (90-100) 03/08/23 03:09 ABG Base Excess 1.9 mmol/L (-2.0-2.0) 03/08/23 03:09 Trav Test Pos 03/08/23 03:09 A-a Gradient 116.0 mmHg 03/08/23 03:09 FiO2 32.0 03/08/23 03:09 Blood Gas Comments Amol well ae 03/08/23 03:09 Sodium 141 mmol/L (136-145) 03/08/23 03:10 Corrected Sodium 141 mmol/L (136-145) 03/08/23 03:10 Potassium 3.8 mmol/L (3.5-5.1) 03/08/23 03:10 Chloride 105 mmol/L (98-107) 03/08/23 03:10 Carbon Dioxide 26.5 mmol/L (21-32) 03/08/23 03:10 BUN 21 mg/dL (7-18) H 03/08/23 03:10 Creatinine 0.55 mg/dL (0.55-1.02) 03/08/23 03:10 Est GFR (MDRD) Af Amer > 60 (>60) 03/08/23 03:10 Est GFR (MDRD) Non-Af > 60 (>60) 03/08/23 03:10 Glucose 114 mg/dL (65-99) H 03/08/23 03:10 Lactic Acid 1.0 mmol/L (0.4-2.0) 03/08/23 03:10 Calcium 8.6 mg/dL (8.5-10.1) 03/08/23 03:10 Corrected Calcium 9.3 mg/dL (8.5-10.1) 03/08/23 03:10 Total Bilirubin 0.50 mg/dL (0.2-1.0) 03/08/23 03:10 AST 15 Units/L (15-37) 03/08/23 03:10 ALT 22 Units/L (12-78) 03/08/23 03:10 Alkaline Phosphatase 217 Units/L (46-116) H 03/08/23 03:10 Creatine Kinase 79 Units/L (26-192) 03/08/23 03:10 Troponin I High Sens 4.1 ng/L (4.0-60.0) 03/08/23 03:10 B-Natriuretic Peptide 53.4 pg/mL (0-79) 03/08/23 03:10 Total Protein 6.4 g/dL (6.4-8.2) 03/08/23 03:10 Albumin 3.1 g/dL (3.4-5.0) L 03/08/23 03:10 Globulin 3.3 g/dL (2.5-4.5) 03/08/23 03:10 Albumin/Globulin Ratio 0.9 Ratio (1.1-2.1) L 03/08/23 03:10 Specimen Type Catherized urine 03/08/23 03:30 Urine Color Yellow (YELLOW) 03/08/23 03:30 Urine Appearance Hazy (CLEAR) 03/08/23 03:30 Urine pH 5.0 (5.0 - 8.0) 03/08/23 03:30 Ur Specific Gray 1.025 (1.000-1.030) 03/08/23 03:30 Urine Protein Negative (NEGATIVE) 03/08/23 03:30 Urine Glucose (UA) Negative (NEGATIVE) 03/08/23 03:30 Urine Ketones Negative (NEGATIVE) 03/08/23 03:30 Urine Blood 2+ (NEGATIVE) 03/08/23 03:30 Urine Nitrite Positive (NEGATIVE) 03/08/23 03:30 Urine Bilirubin Negative (NEGATIVE) 03/08/23 03:30 Urine Urobilinogen Normal (NORMAL) 03/08/23 03:30 Ur Leukocyte Esterase 2+ (NEGATIVE) 03/08/23 03:30 Urine RBC 3-5 /HPF (0-3) A 03/08/23 03:30 Urine WBC 20-30 /HPF (0-5) A 03/08/23 03:30 Ur Squamous Epith Cells Few /HPF (NEGATIVE) 03/08/23 03:30 Calcium Oxalate Crystal Few /HPF (NEGATIVE) 03/08/23 03:30 Urine Bacteria 2+ /HPF (NEGATIVE) 03/08/23 03:30 Urine Mucus Many /HPF (NEGATIVE) 03/08/23 03:30 Ur Culture Indicated? Yes/culture set up 03/08/23 03:30 SARS-CoV-2 (PCR) Negative (NEGATIVE) 03/08/23 03:09 Influenza Type A (PCR) Negative (NEGATIVE) 03/08/23 03:09 Influenza Type B (PCR) Negative (NEGATIVE) 03/08/23 03:09 RSV (PCR) Negative (NEGATIVE) 03/08/23 03:09 Opioid Opioid Risk Tool Age (Kain box if 16-45): No History of Preadolescent Sexual Abuse: No Total: 0 Total Score Risk Category: Low Risk Copyright: [facility] predicting aberrant behaviors Discharge Plan Diagnosis Discharge Problem: Aspiration pneumonia, Urinary tract infection, Acute respiratory insufficiency, Hypoxia Discharge Plan Patient Disposition: ADMITTED INPATIENT Condition: Stable Prescriptions: No Action hydrocodone-acetaminophen 5-325 mg tablet 1 tab PO Q8H MDD 3 PRN (Reason: pain) 30 Days Qty: 90 0RF Artificial Tears([id number]) 1-0.2-0.2 % drops 1 drp ophthalmic (eye) BID Patient Comments: [NO ORIGINAL SIG] lamotrigine [Lamictal] 100 MG tablet 100 mg PO BID Refresh Classic (PF) 1.4-0.6 % dropperette 1 drp EACHEYE Q8H PRN Patient Comments: ONE DROP TO BOTH EYES TID azelastine 137 mcg (0.1 %) aerosol,spray 1 spray Intranasal TID Qty: 30 0RF Rx Instructions: administer into each nostril ascorbic acid (vitamin C) 500 mg Tablet 1,000 mg PO QDAY baclofen 10 mg tablet 10 mg PO BID escitalopram oxalate 10 mg tablet 10 mg PO QDAY diclofenac sodium 1 % gel 2 g TOPICAL BID Preparation H 0.25-14-74.9 % ointment 1 ea IA QID Patient Comments: [NO ORIGINAL SIG] cholecalciferol (vitamin D3) 250 mcg (10,000 unit) Tablet 250 mcg PO QDAY Linzess 72 mcg capsule 72 mcg PO QAM Amino Acid Powder 1 ea PO BID potassium chloride 10 mEq capsule, extended release 10 meq PO TID zinc acetate 50 mg (zinc) Capsule 50 mg PO BID Benadryl Itch Stopping 1-0.1 % Cream 1 applic TOPICAL Q8H PRN brimonidine 0.2 % drops 1 drp OPHTHALMIC (EYE) BID Patient Comments: [NO ORIGINAL SIG] Rx Instructions: RIGHT EYE hydrocortisone 2.5 % Cream 1 applic TOPICAL QID PRN montelukast 10 mg tablet 10 mg PO QDAY fluticasone propionate 50 mcg/actuation spray,suspension 2 spray INTRANASAL DAILY Health Concerns: Post Hospitalization: new medications and changes needed to prevent readmission or further decline. Pt educated and given instructions on all concerns. Plan of Treatment: Continue with present treatment and follow up plan. Pt is to keep follow up appointment as instructed and take medications as ordered. Orders to Discharge Patient Discharge Orders: Transfer (Routine); Ordered 03/08/23 Ordered By: Rajendra Becerra Follow ups/Referrals Follow ups/Referrals: Paul Roman [Primary Care Provider] - 3 days Instructions Stand Alone Forms: Post Hospital Follow Up Care
--- NOTE | 2023-03-08 03:16 | EKG ---
Test Reason : SHORTNESS OF BREATH Blood Pressure : */* mmHG Vent. Rate : 109 BPM Atrial Rate : 109 BPM P-R Int : 162 ms QRS Dur : 76 ms QT Int : 354 ms P-R-T Axes : 33 -66 44 degrees QTc Int : 476 ms Sinus tachycardia Left axis deviation Inferior infarct , age undetermined Abnormal ECG When compared with ECG of 11-NOV-2022 14:42, Borderline criteria for Anterior infarct are no longer present Borderline criteria for Anterolateral infarct are no longer present Inferior infarct is now present Nonspecific T wave abnormality now evident in Inferior leads Confirmed by Eb Damon ([id number]) on 03/10/2023 7:55:02 AM Referred By: Confirmed By: Eb Damon
[2023-03-08 03:25] LABS: BASOPHILS # (AUTO) 0.1 X10^3/uL (0.0-0.1); BASOPHILS % (AUTO) 0.4 % (0.2-1.0); EOSINOPHILS # (AUTO) 0.1 x10^3/uL (0.0-0.2); EOSINOPHILS % (AUTO) 1.2 % (0.9-2.9); HEMATOCRIT 40.4 % (36.0-47.0); HEMOGLOBIN 12.9 g/dL (12.0-16.0); LYMPHOCYTES # (AUTO) 1.3 X10^3/uL (1.3-2.9); LYMPHOCYTES % (AUTO) 11.3 % (21.0-51.0); MEAN CORPUSCULAR HEMOGLOBIN 28.7 pg (27.0-34.0); MEAN CORPUSCULAR HGB CONC 31.8 g/dL (33.0-35.0); MEAN PLATELET VOLUME 8.7 fL (7.4-11.0); MONOCYTES # (AUTO) 1.3 x10^3/uL (0.3-0.8); NEUTROPHILS # (AUTO) 8.9 x10^3/uL (2.2-4.8); NEUTROPHILS % (AUTO) 76.1 % (42.0-75.0); PLATELET COUNT 303 X10^3/uL (150.0-450.0); RED BLOOD COUNT 4.49 X10^6/uL (3.5-5.4); RED CELL DISTRIBUTION WIDTH 15.1 % (11.6-16.5); WHITE BLOOD COUNT 11.7 X10^3/uL (3.6-10.0)
[2023-03-08] MEDS ORDERED: OFIRMEV IV 1000 MG VIAL 1,000 MG/100 ML VIAL IV ONE ×2 (03:31→03:33)
[2023-03-08 03:39] LABS: BILIRUBIN,URINE NEGATIVE (NEGATIVE); BLOOD/HEMOGLOBIN,URINE 2+ (NEGATIVE); GLUCOSE, URINE NEGATIVE (NEGATIVE); KETONES,URINE NEGATIVE (NEGATIVE); LEUKOCYTE ESTERASE ,URINE 2+ (NEGATIVE); NITRITES,URINE POSITIVE (NEGATIVE); PROTEIN,URINE NEGATIVE (NEGATIVE); UROBILINOGEN,URINE NORMAL (NORMAL)
[2023-03-08 03:40] LABS: ALANINE AMINOTRANSFERASE 22 Units/L (12-78); ALBUMIN 3.1 g/dL (3.4-5.0); ALKALINE PHOSPHATASE 217 Units/L (46-116); ASPARTATE AMINO TRANSFERASE 15 Units/L (15-37); BLOOD UREA NITROGEN 21 mg/dL (7-18); CALCIUM 8.6 mg/dL (8.5-10.1); CARBON DIOXIDE 26.5 mmol/L (21-32); CHLORIDE 105 mmol/L (98-107); COR CA(FOR HYPOALB) 9.3 mg/dL (8.5-10.1); COR NA(FOR HYPERGLY) 141 mmol/L (136-145); CREATINE KINASE 79 Units/L (26-192); CREATININE 0.55 mg/dL (0.55-1.02); GLUCOSE 114 mg/dL (65-99); POTASSIUM 3.8 mmol/L (3.5-5.1); SODIUM 141 mmol/L (136-145); TOTAL PROTEIN 6.4 g/dL (6.4-8.2); eGFR NON BLACK RACES > 60 (>60)
[2023-03-08 03:43] LABS: APPEARANCE,URINE HAZY (CLEAR); COLOR,URINE YELLOW (YELLOW)
[2023-03-08 03:50] LABS: BACTERIA,URINE 2+ /HPF (NEGATIVE); CALCIUM OXALATE CRYSTALS,UR FEW /HPF (NEGATIVE); SQUAMOUS EPITHELIAL CELL,UR FEW /HPF (NEGATIVE)
[2023-03-08] MEDS ORDERED: ROCEPHIN VIAL 1 GRAM IV ONE (03:57)
[2023-03-08] MEDS ORDERED: NS 50 ML IV 50 ML IV ONE (04:01)
[2023-03-08] MEDS ORDERED: ROCEPHIN VIAL 1 GRAM ONE (04:01)
[2023-03-08] MEDS: ROCEPHIN VIAL 1 GRAM 1 G in NS 100 ML IV 100 ML IV SCH ×2 (04:41→09:19)
[2023-03-08] MEDS ORDERED: NS 1,000 ML IV 1,000 ML ONE (05:02)
[2023-03-08] MEDS: NS 1,000 ML IV 1,000 ML IV SCH ×3 (05:05→20:37)
[2023-03-08 05:18] LABS: BASOPHILS # (AUTO) 0.1 X10^3/uL (0.0-0.1); EOSINOPHILS # (AUTO) 0.1 x10^3/uL (0.0-0.2)
[2023-03-08 05:29] LABS: BASOPHILS % (AUTO) 0.8 % (0.2-1.0); EOSINOPHILS % (AUTO) 0.6 % (0.9-2.9); HEMATOCRIT 38.3 % (36.0-47.0); HEMOGLOBIN 12.5 g/dL (12.0-16.0); LYMPHOCYTES # (AUTO) 0.7 X10^3/uL (1.3-2.9); MEAN CORPUSCULAR HEMOGLOBIN 29.2 pg (27.0-34.0); MEAN CORPUSCULAR HGB CONC 32.6 g/dL (33.0-35.0); MEAN CORPUSCULAR VOLUME 89.3 fL (80.0-100.0); MEAN PLATELET VOLUME 8.4 fL (7.4-11.0); MONOCYTES # (AUTO) 1.3 x10^3/uL (0.3-0.8); MONOCYTES % (AUTO) 10.9 % (0.0-13.0); NEUTROPHILS # (AUTO) 10.1 x10^3/uL (2.2-4.8); NEUTROPHILS % (AUTO) 81.7 % (42.0-75.0); PLATELET COUNT 248 X10^3/uL (150.0-450.0); RED BLOOD COUNT 4.29 X10^6/uL (3.5-5.4); RED CELL DISTRIBUTION WIDTH 15.3 % (11.6-16.5); WHITE BLOOD COUNT 12.3 X10^3/uL (3.6-10.0)
[2023-03-08 05:31] LABS: ALANINE AMINOTRANSFERASE 18 Units/L (12-78); ALBUMIN 2.8 g/dL (3.4-5.0); ALKALINE PHOSPHATASE 199 Units/L (46-116); ASPARTATE AMINO TRANSFERASE 15 Units/L (15-37); BLOOD UREA NITROGEN 21 mg/dL (7-18); CALCIUM 8.5 mg/dL (8.5-10.1); CARBON DIOXIDE 27.1 mmol/L (21-32); CHLORIDE 106 mmol/L (98-107); COR CA(FOR HYPOALB) 9.5 mg/dL (8.5-10.1); CREATININE 0.57 mg/dL (0.55-1.02); GLUCOSE 109 mg/dL (65-99); POTASSIUM 3.6 mmol/L (3.5-5.1); SODIUM 140 mmol/L (136-145); TOTAL PROTEIN 6.1 g/dL (6.4-8.2); eGFR NON BLACK RACES > 60 (>60)
[2023-03-08] MEDS ORDERED: TYLENOL SUPP 650 MG PR PRN (08:13)
[2023-03-08] MEDS ORDERED: CONSULT PHARMACY - POTASSIUM & MAGNESIUM XX SCH (09:00)
--- NOTE | 2023-03-08 09:13 | RAD ---
EXAM:AP chestHISTORY:Short of breathCOMPARISON:11/11/2022FINDINGS:Stab le heart size. Significant elevated right hemidiaphragm obscures the right posterior lower lung. There is no consolidation, mass, adenopathy or pleural fluid identified.IMPRESSION:No definite interval change or acute findings. See above.THIS IS AN ELECTRONICALLY VERIFIED FINAL REPORT03/08/2023 9:10 AM - Electronically signed by Nguyễn Peck MD
[2023-03-08] MEDS: ARTIFICIAL TEARS DROPS OP SCH ×2 (09:18→20:37)
[2023-03-08] MEDS: FLONASE NASAL SPRAY ENOSTRIL SCH (09:19)
[2023-03-08] MEDS: DUONEB 0.5 MG/3 MG (3 mL) NEB SCH ×5 (09:21→19:59)
[2023-03-08] MEDS: PULMICORT NEB TX 0.5 MG NEB SCH ×3 (09:21→19:59)
[2023-03-08] MEDS: K-RIDER 10 MEQ/NS 100 ML 10 MEQ/100 ML BAG IV SCH ×2 (09:43→11:14)
[2023-03-08] MEDS: ZOSYN VIAL 3.375 GRAMS 3.375 G in NS 100 ML IV 100 ML IV SCH ×3 (10:29→21:23)
--- NOTE | 2023-03-08 12:21 | DR.H&P ---
H&P History & Physical for Day of: H&P Date: 03/08/23 Chief Complaint Chief Complaint: SOB Allergies Allergies Allergy/AdvReac Type Severity Reaction Status Date / Time grass pollen-perennial rye, Allergy Unknown Verified 03/08/23 03:24 standar peach Allergy Unknown Verified 03/08/23 03:24 pork derived (porcine) Allergy Unknown Verified 03/08/23 03:24 Pork/Porcine Containing Allergy Unknown Verified 03/08/23 03:24 Products Sulfa (Sulfonamide Allergy Unknown Verified 03/08/23 03:24 Antibiotics) tramadol Allergy Unknown Verified 03/08/23 03:24 wheat Allergy Unknown Verified 03/08/23 03:24 sulfamethoxazole Allergy Verified 03/08/23 03:24 History of Present Illness History of Present Illness: Ms Pan is a 82 y.o female who is currently a resident of [place]. She was noted to have worsening shortness of breath and cough last night. Her O2 sats were in the 70s so she was sent to the ER for further evaluation. She was found to have UTI. RSV/COVID/FLU all negative. She is currently on 3 L NC. Her daughter is present at bedside. Patient has been coughing up some sputum. She was started on IV Rocephin, hydration and nebs. Labs/imaging reviewed - WBC 12.3 K 3.6 - AIT respiratory pending - CXR reviewed Plan: Will switch to Zosyn, continue hydration and nebs. Order sputum culture, follow respiratory panel. Speech consult. Daughter states patient was eating regular food at [place]. Will repeat CXR in the AM. Tylenol prn. Will hold off on PO medications until patient is more alert and able to swallow. Replace electrolytes prn. Monitor AM labs/imaging. Past Medical History Past Medical History: Anxiety, Arthritis, CVA, Depression and GERD Past Surgical History Surgical History: Cholecystectomy Family History Family Medical History: Diabetes Mellitus, Cancer and Hypertension Social History Does any household member use tobacco: No Alcohol Use: None Drug Use: None Medications Home Medications: Home Medications Medication Instructions Recorded Confirmed Type lamotrigine 100 mg tablet 100 mg PO BID 11/07/12 03/08/23 History (Lamictal) polyvinyl alcohol-povidone (PF) 1 drp EACHEYE Q8H PRN 11/07/12 03/08/23 History 1.4 %-0.6 % eye drops in a dropperette (Refresh Classic (PF)) amino acids 1 ea PO BID 06/03/22 03/08/23 History ascorbic acid (vitamin C) 500 mg 1,000 mg PO QDAY 06/03/22 03/08/23 History tablet baclofen 10 mg tablet 10 mg PO BID 06/03/22 03/08/23 History cholecalciferol (vitamin D3) 250 250 mcg PO QDAY 06/03/22 03/08/23 History mcg (10,000 unit) tablet diclofenac sodium 1 % topical gel 2 g topical BID 06/03/22 03/08/23 History escitalopram oxalate 10 mg tablet 10 mg PO QDAY 06/03/22 03/08/23 History linaclotide 72 mcg capsule 72 mcg PO QAM 06/03/22 03/08/23 History (Linzess) phenylephrine 0.25 %-mineral oil 1 ea [place] QID 06/03/22 03/08/23 History 14 %-petrolatm 74.9 % rectal ointment (Preparation H) peg [id number] 1 1 drp ophthalmic (eye) BID 06/19/22 03/08/23 History %-0.2 %-0.2 % eye drops (Artificial Tears ([id number])) brimonidine 0.2 % eye drops 1 drp ophthalmic (eye) BID 03/08/23 03/08/23 History diphenhydramine-zinc acetate 1 1 applic topical Q8H PRN 03/08/23 03/08/23 History %-0.1 % topical cream (Benadryl Itch Stopping) fluticasone propionate 50 2 spray intranasal DAILY 03/08/23 03/08/23 History mcg/actuation nasal spray,suspension hydrocortisone 2.5 % topical cream 1 applic topical QID PRN 03/08/23 03/08/23 History montelukast 10 mg tablet 10 mg PO QDAY 03/08/23 03/08/23 History potassium chloride 10 mEq 10 meq PO TID 03/08/23 03/08/23 History capsule,extended release zinc acetate 50 mg (zinc) capsule 50 mg PO BID 03/08/23 03/08/23 History Labs 03/08/23 05:05 03/08/23 05:05 Labs: Laboratory WBC 12.3 X10^3/uL (3.6-10.0) H 03/08/23 05:05 RBC 4.29 X10^6/uL (3.5-5.4) 03/08/23 05:05 Hgb 12.5 g/dL (12.0-16.0) 03/08/23 05:05 Hct 38.3 % (36.0-47.0) 03/08/23 05:05 MCV 89.3 fL (80.0-100.0) 03/08/23 05:05 MCH 29.2 pg (27.0-34.0) 03/08/23 05:05 MCHC 32.6 g/dL (33.0-35.0) L 03/08/23 05:05 RDW 15.3 % (11.6-16.5) 03/08/23 05:05 Plt Count 248 X10^3/uL (150.0-450.0) 03/08/23 05:05 MPV 8.4 fL (7.4-11.0) 03/08/23 05:05 Neut % (Auto) 81.7 % (42.0-75.0) H 03/08/23 05:05 Lymph % (Auto) 6.0 % (21.0-51.0) L 03/08/23 05:05 [place] % (Auto) 10.9 % (0.0-13.0) 03/08/23 05:05 Eos % (Auto) 0.6 % (0.9-2.9) L 03/08/23 05:05 Baso % (Auto) 0.8 % (0.2-1.0) 03/08/23 05:05 Neut # (Auto) 10.1 x10^3/uL (2.2-4.8) H 03/08/23 05:05 Lymph # (Auto) 0.7 X10^3/uL (1.3-2.9) L 03/08/23 05:05 [place] # (Auto) 1.3 x10^3/uL (0.3-0.8) H 03/08/23 05:05 Eos # (Auto) 0.1 x10^3/uL (0.0-0.2) 03/08/23 05:05 Baso # (Auto) 0.1 X10^3/uL (0.0-0.1) 03/08/23 05:05 Absolute Nucleated RBC 0.0 /100WBC 03/08/23 05:05 Sample Site Rr 03/08/23 03:09 ABG pH 7.420 (7.35-7.45) 03/08/23 03:09 ABG pCO2 41.0 mmHg (35.0-45.0) 03/08/23 03:09 ABG pO2 61.0 mmHg (80.0-100.0) L 03/08/23 03:09 ABG HCO3 26.6 mmol/L (22-26) H 03/08/23 03:09 ABG O2 Saturation 91.0 % (90-100) 03/08/23 03:09 ABG Base Excess 1.9 mmol/L (-2.0-2.0) 03/08/23 03:09 Trav Test Pos 03/08/23 03:09 A-a Gradient 116.0 mmHg 03/08/23 03:09 FiO2 32.0 03/08/23 03:09 Blood Gas Comments Amol well ae 03/08/23 03:09 Sodium 140 mmol/L (136-145) 03/08/23 05:05 Corrected Sodium TNP 03/08/23 05:05 Potassium 3.6 mmol/L (3.5-5.1) 03/08/23 05:05 Chloride 106 mmol/L (98-107) 03/08/23 05:05 Carbon Dioxide 27.1 mmol/L (21-32) 03/08/23 05:05 BUN 21 mg/dL (7-18) H 03/08/23 05:05 Creatinine 0.57 mg/dL (0.55-1.02) 03/08/23 05:05 Est GFR (MDRD) Af Amer > 60 (>60) 03/08/23 05:05 Est GFR (MDRD) Non-Af > 60 (>60) 03/08/23 05:05 Glucose 109 mg/dL (65-99) H 03/08/23 05:05 Lactic Acid 1.0 mmol/L (0.4-2.0) 03/08/23 03:10 Calcium 8.5 mg/dL (8.5-10.1) 03/08/23 05:05 Corrected Calcium 9.5 mg/dL (8.5-10.1) 03/08/23 05:05 Magnesium 2.0 mg/dL (2.0-2.9) 03/08/23 05:05 Total Bilirubin 0.40 mg/dL (0.2-1.0) 03/08/23 05:05 AST 15 Units/L (15-37) 03/08/23 05:05 ALT 18 Units/L (12-78) 03/08/23 05:05 Alkaline Phosphatase 199 Units/L (46-116) H 03/08/23 05:05 Creatine Kinase 79 Units/L (26-192) 03/08/23 03:10 Troponin I High Sens 4.1 ng/L (4.0-60.0) 03/08/23 03:10 B-Natriuretic Peptide 53.4 pg/mL (0-79) 03/08/23 03:10 Total Protein 6.1 g/dL (6.4-8.2) L 03/08/23 05:05 Albumin 2.8 g/dL (3.4-5.0) L 03/08/23 05:05 Globulin 3.3 g/dL (2.5-4.5) 03/08/23 05:05 Albumin/Globulin Ratio 0.8 Ratio (1.1-2.1) L 03/08/23 05:05 Specimen Type Catherized urine 03/08/23 03:30 Urine Color Yellow (YELLOW) 03/08/23 03:30 Urine Appearance Hazy (CLEAR) 03/08/23 03:30 Urine pH 5.0 (5.0 - 8.0) 03/08/23 03:30 Ur Specific [place] 1.025 (1.000-1.030) 03/08/23 03:30 Urine Protein Negative (NEGATIVE) 03/08/23 03:30 Urine Glucose (UA) Negative (NEGATIVE) 03/08/23 03:30 Urine Ketones Negative (NEGATIVE) 03/08/23 03:30 Urine Blood 2+ (NEGATIVE) 03/08/23 03:30 Urine Nitrite Positive (NEGATIVE) 03/08/23 03:30 Urine Bilirubin Negative (NEGATIVE) 03/08/23 03:30 Urine Urobilinogen Normal (NORMAL) 03/08/23 03:30 Ur Leukocyte Esterase 2+ (NEGATIVE) 03/08/23 03:30 Urine RBC 3-5 /HPF (0-3) A 03/08/23 03:30 Urine WBC 20-30 /HPF (0-5) A 03/08/23 03:30 Ur Squamous Epith Cells Few /HPF (NEGATIVE) 03/08/23 03:30 Calcium Oxalate Crystal Few /HPF (NEGATIVE) 03/08/23 03:30 Urine Bacteria 2+ /HPF (NEGATIVE) 03/08/23 03:30 Urine Mucus Many /HPF (NEGATIVE) 03/08/23 03:30 Ur Culture Indicated? Yes/culture set up 03/08/23 03:30 SARS-CoV-2 (PCR) Negative (NEGATIVE) 03/08/23 03:09 Influenza Type A (PCR) Negative (NEGATIVE) 03/08/23 03:09 Influenza Type B (PCR) Negative (NEGATIVE) 03/08/23 03:09 RSV (PCR) Negative (NEGATIVE) 03/08/23 03:09 Review of Systems Constitutional: Malaise Eyes: No Symptoms Reported Respiratory: Cough, Shortness of Breath, SOB with Excertion and Sputum Cardiovascular: No Symptoms Reported Gastrointestinal: No Symptoms Reported Genitourinary: No Symptoms Reported Musculoskeletal: No Symptoms Reported Skin: No Symptoms Reported Neurological: Weakness and Confusion Physical Exam Vital Signs: Vital Signs Temperature 101.1 F Temperature 99.8 F Temperature 98.4 F Pulse Rate [Right] 108 Pulse Rate [Right] 97 Pulse Rate [Right] 96 Pulse Rate 103 Pulse Rate 97 Pulse Rate 98 Pulse Rate 96 Pulse Rate 95 Pulse Rate 97 Pulse Rate 98 Respiratory Rate 24 Respiratory Rate 20 Respiratory Rate 36 Respiratory Rate 26 Respiratory Rate 33 Respiratory Rate 23 Respiratory Rate 32 Respiratory Rate 29 Respiratory Rate 28 Respiratory Rate 26 Respiratory Rate 27 Blood Pressure [Left Calf] 162/84 Blood Pressure [Left Calf] 140/64 Blood Pressure [Left Arm] 127/58 Blood Pressure 129/62 Blood Pressure 127/58 Blood Pressure 127/58 Blood Pressure 125/59 Blood Pressure 125/59 Blood Pressure 126/60 Blood Pressure 116/57 Blood Pressure 129/61 Blood Pressure 129/61 O2 Sat by Pulse Oximetry 95 O2 Sat by Pulse Oximetry 94 O2 Sat by Pulse Oximetry 95 O2 Sat by Pulse Oximetry 94 O2 Sat by Pulse Oximetry 94 O2 Sat by Pulse Oximetry 95 O2 Sat by Pulse Oximetry 93 O2 Sat by Pulse Oximetry 93 O2 Sat by Pulse Oximetry 93 O2 Sat by Pulse Oximetry 93 Oriented: Unable to test Nose: Normal Respiratory: Rhonchi Throughout and Wheezes Throughout Cardiovascular: Normal Auscultation: Bowel Sounds: Normal Palpation: Normal Tenderness: Normal Skin: Decreased [place] Musculoskeletal: Normal Psychiatric: Normal Mood Description: Flat Affect: Flat Speech Pattern: Clear and Delayed Assessment/Plan (1) Aspiration pneumonia: Qualifiers: Aspiration pneumonia type: unspecified Laterality: unspecified laterality Lung location: unspecified part of lung Qualified Code(s): J69.0 - Pneumonitis due to inhalation of food and vomit Status: Acute (2) Urinary tract infection: Qualifiers: Hematuria presence: without hematuria Urinary tract infection type: acute cystitis Qualified Code(s): N30.00 - Acute cystitis without hematuria Status: Acute (3) Bronchitis: Status: Acute (4) Acute respiratory insufficiency: Status: Acute (5) History of CVA (cerebrovascular accident): Status: Chronic Review H&P Reviewed: Yes Patient was examined?: Yes
[2023-03-08] MEDS ORDERED: DULCOLAX SUPPOSITORY 10 MG RECTAL ONE (21:00)
--- NOTE | 2023-03-08 22:43 | RAD ---
PROCEDURE: Abdomen X-ray 1 View .HISTORY: Constipation.TECHNIQUE: AP supine abdomen view .COMPARISON: 07/13/2021.TECHNICAL QUALITY: Satisfactory .FINDINGS:Minimal gas and feces in the colon without distention. No inordinate amount of feces suggesting constipation.No obstruction or ileus.No organomegaly.Tube coiled in the pelvis.No abnormal calcifications.IMPRESSION:Nonspecific bowel-gas pattern.Electronically signed by: Kal Blakely (Mar 08, 2023 22:41:35)
[2023-03-09 05:15] LABS: BASOPHILS # (AUTO) 0.1 X10^3/uL (0.0-0.1); BASOPHILS % (AUTO) 0.8 % (0.2-1.0); EOSINOPHILS # (AUTO) 0.1 x10^3/uL (0.0-0.2); EOSINOPHILS % (AUTO) 0.7 % (0.9-2.9); HEMATOCRIT 37.1 % (36.0-47.0); HEMOGLOBIN 11.7 g/dL (12.0-16.0); LYMPHOCYTES # (AUTO) 0.9 X10^3/uL (1.3-2.9); LYMPHOCYTES % (AUTO) 8.5 % (21.0-51.0); MEAN CORPUSCULAR HEMOGLOBIN 28.5 pg (27.0-34.0); MEAN CORPUSCULAR HGB CONC 31.6 g/dL (33.0-35.0); MEAN CORPUSCULAR VOLUME 90.2 fL (80.0-100.0); MEAN PLATELET VOLUME 9.8 fL (7.4-11.0); MONOCYTES # (AUTO) 1.3 x10^3/uL (0.3-0.8); MONOCYTES % (AUTO) 11.3 % (0.0-13.0); NEUTROPHILS # (AUTO) 8.7 x10^3/uL (2.2-4.8); NEUTROPHILS % (AUTO) 78.7 % (42.0-75.0); PLATELET COUNT 241 X10^3/uL (150.0-450.0); RED BLOOD COUNT 4.11 X10^6/uL (3.5-5.4); WHITE BLOOD COUNT 11.1 X10^3/uL (3.6-10.0)
[2023-03-09 05:35] LABS: ALANINE AMINOTRANSFERASE 13 Units/L (12-78); ALBUMIN 2.4 g/dL (3.4-5.0); ALKALINE PHOSPHATASE 168 Units/L (46-116); ASPARTATE AMINO TRANSFERASE 14 Units/L (15-37); BLOOD UREA NITROGEN 17 mg/dL (7-18); CALCIUM 8.5 mg/dL (8.5-10.1); CARBON DIOXIDE 25.1 mmol/L (21-32); CHLORIDE 107 mmol/L (98-107); COR CA(FOR HYPOALB) 9.8 mg/dL (8.5-10.1); CREATININE 0.48 mg/dL (0.55-1.02); GLUCOSE 92 mg/dL (65-99); POTASSIUM 3.5 mmol/L (3.5-5.1); SODIUM 140 mmol/L (136-145); TOTAL PROTEIN 5.9 g/dL (6.4-8.2); eGFR NON BLACK RACES > 60 (>60)
[2023-03-09] MEDS: ZOSYN VIAL 3.375 GRAMS 3.375 G in NS 100 ML IV 100 ML IV SCH ×3 (06:03→20:59)
[2023-03-09] MEDS ORDERED: CONSULT PHARMACY - POTASSIUM & MAGNESIUM XX SCH (07:00)
[2023-03-09] MEDS: NS 1,000 ML IV 1,000 ML IV SCH (08:13)
[2023-03-09] MEDS: ARTIFICIAL TEARS DROPS OP SCH ×2 (08:13→20:59)
[2023-03-09] MEDS: NS + KCL 20 MEQ/L 1,000 ML with MAGNESIUM SULFATE 50% INJ VIAL 1 G IV SCH ×4 (08:14→21:42)
[2023-03-09] MEDS: FLONASE NASAL SPRAY ENOSTRIL SCH (08:14)
[2023-03-09] MEDS ORDERED: K-DUR TAB 20 MEQ PO SCH (09:00)
[2023-03-09] MEDS ORDERED: MAG-OX TAB PO SCH (09:00)
[2023-03-09] MEDS: PULMICORT NEB TX 0.5 MG NEB SCH ×2 (09:25→20:12)
[2023-03-09] MEDS: DUONEB 0.5 MG/3 MG (3 mL) NEB SCH ×4 (09:25→20:12)
--- NOTE | 2023-03-09 13:24 | PCM.PROG ---
Progress Note Progress Note for Day of Date of Exam: 03/09/23 Subjective Subjective: Patient seen at bedside, no acute events overnight. She appears to be more alert & oriented today. She is still on 3 L NC. She is being treated for UTI and pneumonia with Zosyn. Labs/imaging reviewed - Urine Cx: gram (-) rods - K:3.5 Hgb 11.7 Mag 1.9 - KUB: no acute process Plan: Continue IV Zosyn and nebs. Wean O2 as tolerated. Follow CXR. Will attempt beside swallow test and see how patient does today since she is more awake and alert today. Replace K and Mag prn. Follow pending cultures. Monitor AM labs/imaging. Past Medical Family Social History Allergies: Allergies grass pollen-perennial rye, standar Allergy (Unknown, Verified 03/08/23 03:24) 'RYE' allergy per pt; no exact matching allergy in [place] peach Allergy (Unknown, Verified 03/08/23 03:24) pork derived (porcine) Allergy (Unknown, Verified 03/08/23 03:24) replaces previous free-text uncoded entry 'Pork' Pork/Porcine Containing Products Allergy (Unknown, Verified 03/08/23 03:24) replaces previous free-text uncoded entry 'Pork' Sulfa (Sulfonamide Antibiotics) Allergy (Unknown, Verified 03/08/23 03:24) tramadol Allergy (Unknown, Verified 03/08/23 03:24) Reason: Drug allergy wheat Allergy (Unknown, Verified 03/08/23 03:24) 'RYE' allergy per pt; no exact matching allergy in [place]. [place] is a grass in the wheat family. sulfamethoxazole Allergy (Verified 03/08/23 03:24) Vital Signs and I&O's Vital Signs: Vital Signs Temperature 99 F Temperature 98.6 F Pulse Rate [Right] 93 Pulse Rate [Right] 95 Pulse Rate 92 Respiratory Rate 26 Respiratory Rate 28 Blood Pressure [Left Calf] 105/72 Blood Pressure [Left Calf] 117/62 O2 Sat by Pulse Oximetry 96 O2 Sat by Pulse Oximetry 98 O2 Sat by Pulse Oximetry 96 Intake and Output: Intake & Output 03/06/23 03/07/23 03/08/23 03/09/23 23:59 23:59 23:59 23:59 Intake Total 1790 / 1790 687 / 687 Output Total 250 / 250 150 / 150 Balance 1540 / 1540 537 / 537 Physical Exam Oriented: Normal Nose: Normal Respiratory: Generalized and Rhonchi Cardiovascular: Normal Auscultation: Bowel Sounds: Normal Tenderness: Normal Skin: Decreased Turgur Musculoskeletal: Normal Psychiatric: Normal Mood Description: Flat Affect: Flat Speech Pattern: Clear and Appropriate Laboratory and Diagnostics 03/09/23 04:45 03/09/23 04:45 Labs: 03/08/23 03:30 Urine,Catheterized Urine Culture - Preliminary Laboratory WBC 11.1 X10^3/uL (3.6-10.0) H 03/09/23 04:45 RBC 4.11 X10^6/uL (3.5-5.4) 03/09/23 04:45 Hgb 11.7 g/dL (12.0-16.0) L 03/09/23 04:45 Hct 37.1 % (36.0-47.0) 03/09/23 04:45 MCV 90.2 fL (80.0-100.0) 03/09/23 04:45 MCH 28.5 pg (27.0-34.0) 03/09/23 04:45 MCHC 31.6 g/dL (33.0-35.0) L 03/09/23 04:45 RDW 15.0 % (11.6-16.5) 03/09/23 04:45 Plt Count 241 X10^3/uL (150.0-450.0) 03/09/23 04:45 MPV 9.8 fL (7.4-11.0) 03/09/23 04:45 Neut % (Auto) 78.7 % (42.0-75.0) H 03/09/23 04:45 Lymph % (Auto) 8.5 % (21.0-51.0) L 03/09/23 04:45 [place] % (Auto) 11.3 % (0.0-13.0) 03/09/23 04:45 Eos % (Auto) 0.7 % (0.9-2.9) L 03/09/23 04:45 Baso % (Auto) 0.8 % (0.2-1.0) 03/09/23 04:45 Neut # (Auto) 8.7 x10^3/uL (2.2-4.8) H 03/09/23 04:45 Lymph # (Auto) 0.9 X10^3/uL (1.3-2.9) L 03/09/23 04:45 [place] # (Auto) 1.3 x10^3/uL (0.3-0.8) H 03/09/23 04:45 Eos # (Auto) 0.1 x10^3/uL (0.0-0.2) 03/09/23 04:45 Baso # (Auto) 0.1 X10^3/uL (0.0-0.1) 03/09/23 04:45 Absolute Nucleated RBC 0.0 /100WBC 03/09/23 04:45 Sample Site Rr 03/08/23 03:09 ABG pH 7.420 (7.35-7.45) 03/08/23 03:09 ABG pCO2 41.0 mmHg (35.0-45.0) 03/08/23 03:09 ABG pO2 61.0 mmHg (80.0-100.0) L 03/08/23 03:09 ABG HCO3 26.6 mmol/L (22-26) H 03/08/23 03:09 ABG O2 Saturation 91.0 % (90-100) 03/08/23 03:09 ABG Base Excess 1.9 mmol/L (-2.0-2.0) 03/08/23 03:09 Trav Test Pos 03/08/23 03:09 A-a Gradient 116.0 mmHg 03/08/23 03:09 FiO2 32.0 03/08/23 03:09 Blood Gas Comments Amol well ae 03/08/23 03:09 Sodium 140 mmol/L (136-145) 03/09/23 04:45 Corrected Sodium TNP 03/09/23 04:45 Potassium 3.5 mmol/L (3.5-5.1) 03/09/23 04:45 Chloride 107 mmol/L (98-107) 03/09/23 04:45 Carbon Dioxide 25.1 mmol/L (21-32) 03/09/23 04:45 BUN 17 mg/dL (7-18) 03/09/23 04:45 Creatinine 0.48 mg/dL (0.55-1.02) L 03/09/23 04:45 Est GFR (MDRD) Af Amer > 60 (>60) 03/09/23 04:45 Est GFR (MDRD) Non-Af > 60 (>60) 03/09/23 04:45 Glucose 92 mg/dL (65-99) 03/09/23 04:45 Lactic Acid 1.0 mmol/L (0.4-2.0) 03/08/23 03:10 Calcium 8.5 mg/dL (8.5-10.1) 03/09/23 04:45 Corrected Calcium 9.8 mg/dL (8.5-10.1) 03/09/23 04:45 Magnesium 1.9 mg/dL (2.0-2.9) L 03/09/23 04:45 Total Bilirubin 0.30 mg/dL (0.2-1.0) 03/09/23 04:45 AST 14 Units/L (15-37) L 03/09/23 04:45 ALT 13 Units/L (12-78) 03/09/23 04:45 Alkaline Phosphatase 168 Units/L (46-116) H 03/09/23 04:45 Creatine Kinase 79 Units/L (26-192) 03/08/23 03:10 Troponin I High Sens 4.1 ng/L (4.0-60.0) 03/08/23 03:10 B-Natriuretic Peptide 53.4 pg/mL (0-79) 03/08/23 03:10 Total Protein 5.9 g/dL (6.4-8.2) L 03/09/23 04:45 Albumin 2.4 g/dL (3.4-5.0) L 03/09/23 04:45 Globulin 3.5 g/dL (2.5-4.5) 03/09/23 04:45 Albumin/Globulin Ratio 0.7 Ratio (1.1-2.1) L 03/09/23 04:45 Specimen Type Catherized urine 03/08/23 03:30 Urine Color Yellow (YELLOW) 03/08/23 03:30 Urine Appearance Hazy (CLEAR) 03/08/23 03:30 Urine pH 5.0 (5.0 - 8.0) 03/08/23 03:30 Ur Specific [place] 1.025 (1.000-1.030) 03/08/23 03:30 Urine Protein Negative (NEGATIVE) 03/08/23 03:30 Urine Glucose (UA) Negative (NEGATIVE) 03/08/23 03:30 Urine Ketones Negative (NEGATIVE) 03/08/23 03:30 Urine Blood 2+ (NEGATIVE) 03/08/23 03:30 Urine Nitrite Positive (NEGATIVE) 03/08/23 03:30 Urine Bilirubin Negative (NEGATIVE) 03/08/23 03:30 Urine Urobilinogen Normal (NORMAL) 03/08/23 03:30 Ur Leukocyte Esterase 2+ (NEGATIVE) 03/08/23 03:30 Urine RBC 3-5 /HPF (0-3) A 03/08/23 03:30 Urine WBC 20-30 /HPF (0-5) A 03/08/23 03:30 Ur Squamous Epith Cells Few /HPF (NEGATIVE) 03/08/23 03:30 Calcium Oxalate Crystal Few /HPF (NEGATIVE) 03/08/23 03:30 Urine Bacteria 2+ /HPF (NEGATIVE) 03/08/23 03:30 Urine Mucus Many /HPF (NEGATIVE) 03/08/23 03:30 Ur Culture Indicated? Yes/culture set up 03/08/23 03:30 SARS-CoV-2 (PCR) Negative (NEGATIVE) 03/08/23 03:09 Influenza Type A (PCR) Negative (NEGATIVE) 03/08/23 03:09 Influenza Type B (PCR) Negative (NEGATIVE) 03/08/23 03:09 RSV (PCR) Negative (NEGATIVE) 03/08/23 03:09 Plan (1) Aspiration pneumonia: Status: Acute Qualifiers: Aspiration pneumonia type: unspecified Laterality: unspecified laterality Lung location: unspecified part of lung Qualified Code(s): J69.0 - Pneumonitis due to inhalation of food and vomit (2) Urinary tract infection: Status: Acute Qualifiers: Hematuria presence: without hematuria Urinary tract infection type: a cute cystitis Qualified Code(s): N30.00 - Acute cystitis without hematuria (3) Bronchitis: Status: Acute (4) Acute respiratory insufficiency: Status: Acute (5) History of CVA (cerebrovascular accident): Status: Chronic
[2023-03-10] MEDS: ZOSYN VIAL 3.375 GRAMS 3.375 G in NS 100 ML IV 100 ML IV SCH ×3 (05:43→21:18)
[2023-03-10 06:50] LABS: BASOPHILS % (AUTO) 0.6 % (0.2-1.0); EOSINOPHILS # (AUTO) 0.3 x10^3/uL (0.0-0.2); EOSINOPHILS % (AUTO) 4.7 % (0.9-2.9); HEMATOCRIT 31.4 % (36.0-47.0); HEMOGLOBIN 10.2 g/dL (12.0-16.0); LYMPHOCYTES # (AUTO) 0.9 X10^3/uL (1.3-2.9); LYMPHOCYTES % (AUTO) 13.6 % (21.0-51.0); MEAN CORPUSCULAR HEMOGLOBIN 29.5 pg (27.0-34.0); MEAN CORPUSCULAR HGB CONC 32.6 g/dL (33.0-35.0); MEAN CORPUSCULAR VOLUME 90.4 fL (80.0-100.0); MEAN PLATELET VOLUME 9.5 fL (7.4-11.0); MONOCYTES # (AUTO) 0.8 x10^3/uL (0.3-0.8); MONOCYTES % (AUTO) 11.3 % (0.0-13.0); NEUTROPHILS # (AUTO) 4.7 x10^3/uL (2.2-4.8); NEUTROPHILS % (AUTO) 69.8 % (42.0-75.0); PLATELET COUNT 198 X10^3/uL (150.0-450.0); RED BLOOD COUNT 3.48 X10^6/uL (3.5-5.4); RED CELL DISTRIBUTION WIDTH 15.1 % (11.6-16.5); WHITE BLOOD COUNT 6.7 X10^3/uL (3.6-10.0)
[2023-03-10 07:07] LABS: ALANINE AMINOTRANSFERASE 11 Units/L (12-78); ALBUMIN 2.2 g/dL (3.4-5.0); ALKALINE PHOSPHATASE 151 Units/L (46-116); ASPARTATE AMINO TRANSFERASE 13 Units/L (15-37); BLOOD UREA NITROGEN 8 mg/dL (7-18); CALCIUM 8.2 mg/dL (8.5-10.1); CARBON DIOXIDE 24.2 mmol/L (21-32); CHLORIDE 110 mmol/L (98-107); COR CA(FOR HYPOALB) 9.6 mg/dL (8.5-10.1); CREATININE 0.35 mg/dL (0.55-1.02); GLUCOSE 78 mg/dL (65-99); MAGNESIUM 2.4 mg/dL (2.0-2.9); POTASSIUM 3.5 mmol/L (3.5-5.1); SODIUM 142 mmol/L (136-145); TOTAL PROTEIN 5.4 g/dL (6.4-8.2); eGFR NON BLACK RACES > 60 (>60)
[2023-03-10] MEDS: PULMICORT NEB TX 0.5 MG NEB SCH ×3 (07:55→20:35)
[2023-03-10] MEDS: DUONEB 0.5 MG/3 MG (3 mL) NEB SCH ×7 (07:56→20:35)
--- NOTE | 2023-03-10 08:06 | RAD ---
EXAM:CHEST, 1 VIEWHISTORY:SOB; HX: CVACOMPARISON:03/08/2023.TECHNIQUE:AP view of the chestFINDINGS:Patient is rotated. There is elevation of the right hemidiaphragm which is unchanged. Patchy opacity in the left mid to lower lung and medial right upper lobe. Blunted costophrenic sulci. No pneumothorax.IMPRESSION:Patchy pulmonary opacities may represent pneumonia in the appropriate clinical setting. Recommend follow-up imaging to document resolution after appropriate treatment. Blunted costophrenic sulci can be seen with small pleural effusions or pleuroparenchymal scarring.THIS IS AN ELECTRONICALLY VERIFIED FINAL REPORT03/10/2023 7:50 AM - Electronically signed by Deep Rhodes MD
[2023-03-10] MEDS: ARTIFICIAL TEARS DROPS OP SCH ×2 (08:15→21:18)
[2023-03-10] MEDS: FLONASE NASAL SPRAY ENOSTRIL SCH (08:16)
[2023-03-10] MEDS ORDERED: PHARMACY CONSULT LTC MEDICATIONS XX SCH (09:00)
[2023-03-10] MEDS: NS + KCL 20 MEQ/L 1,000 ML with MAGNESIUM SULFATE 50% INJ VIAL 1 G IV SCH ×4 (10:14→22:15)
[2023-03-10] MEDS: XARELTO PO SCH (10:47)
[2023-03-10] MEDS ORDERED: K-DUR TAB 20 MEQ PO ONE (15:00)
[2023-03-11] MEDS: NS + KCL 20 MEQ/L 1,000 ML with MAGNESIUM SULFATE 50% INJ VIAL 1 G IV SCH ×2 (01:52)
[2023-03-11] MEDS: ZOSYN VIAL 3.375 GRAMS 3.375 G in NS 100 ML IV 100 ML IV SCH (05:06)
[2023-03-11 05:58] LABS: BASOPHILS # (AUTO) 0.1 X10^3/uL (0.0-0.1); BASOPHILS % (AUTO) 1.4 % (0.2-1.0); EOSINOPHILS # (AUTO) 0.4 x10^3/uL (0.0-0.2); EOSINOPHILS % (AUTO) 6.8 % (0.9-2.9); LYMPHOCYTES # (AUTO) 0.9 X10^3/uL (1.3-2.9); LYMPHOCYTES % (AUTO) 14.8 % (21.0-51.0); MEAN CORPUSCULAR HEMOGLOBIN 29.1 pg (27.0-34.0); MEAN CORPUSCULAR HGB CONC 32.2 g/dL (33.0-35.0); MEAN CORPUSCULAR VOLUME 90.2 fL (80.0-100.0); MEAN PLATELET VOLUME 9.2 fL (7.4-11.0); MONOCYTES # (AUTO) 0.6 x10^3/uL (0.3-0.8); MONOCYTES % (AUTO) 9.8 % (0.0-13.0); NEUTROPHILS # (AUTO) 4.1 x10^3/uL (2.2-4.8); NEUTROPHILS % (AUTO) 67.2 % (42.0-75.0); PLATELET COUNT 284 X10^3/uL (150.0-450.0); RED BLOOD COUNT 3.77 X10^6/uL (3.5-5.4); RED CELL DISTRIBUTION WIDTH 14.9 % (11.6-16.5); WHITE BLOOD COUNT 6.1 X10^3/uL (3.6-10.0)
[2023-03-11 06:16] LABS: ALANINE AMINOTRANSFERASE 14 Units/L (12-78); ALBUMIN 2.3 g/dL (3.4-5.0); ALKALINE PHOSPHATASE 156 Units/L (46-116); ASPARTATE AMINO TRANSFERASE 25 Units/L (15-37); BLOOD UREA NITROGEN 5 mg/dL (7-18); CALCIUM 8.3 mg/dL (8.5-10.1); CARBON DIOXIDE 26.9 mmol/L (21-32); CHLORIDE 110 mmol/L (98-107); COR CA(FOR HYPOALB) 9.7 mg/dL (8.5-10.1); CREATININE 0.33 mg/dL (0.55-1.02); GLUCOSE 81 mg/dL (65-99); SODIUM 143 mmol/L (136-145); TOTAL PROTEIN 5.8 g/dL (6.4-8.2); eGFR NON BLACK RACES > 60 (>60)
--- NOTE | 2023-03-11 08:00 | RAD ---
EXAM:CHEST, 1 VIEWHISTORY:POSSIBLE ASPIRATION PNEUMONIA, SOB ;COMPARISON:03/09/2023.TECHNIQUE:AP view of the chestFINDINGS:There is severe elevation of the right hemidiaphragm. Similar-appearing patchy left mid to lower lung opacity. Blunted costophrenic sulci remain. No pneumothorax. Similar-appearing cardiac and mediastinal contours. Severe calcifications of the aortic knob.IMPRESSION:No significant change compared to prior radiograph.THIS IS AN ELECTRONICALLY VERIFIED FINAL REPORT03/11/2023 7:57 AM - Electronically signed by Deep Rhodes MD
--- NOTE | 2023-03-11 08:31 | PCM.PROG ---
Progress Note Progress Note for Day of Date of Exam: 03/10/23 Subjective Subjective: The patient reports she is feeling better this morning. Her breathing is better but she is still coughing some. She was afebrile overnight. She is still mildly anemic but vital signs are stable. Continue current treatment and repeat chest x-ray again tomorrow morning. If she is doing well we will plan on discharging back to custodial tomorrow. Follow-up urine culture when available. Past Medical Family Social History Allergies: Allergies grass pollen-perennial rye, standar Allergy (Unknown, Verified 03/08/23 03:24) 'RYE' allergy per pt; no exact matching allergy in [place] peach Allergy (Unknown, Verified 03/08/23 03:24) pork derived (porcine) Allergy (Unknown, Verified 03/08/23 03:24) replaces previous free-text uncoded entry 'Pork' Pork/Porcine Containing Products Allergy (Unknown, Verified 03/08/23 03:24) replaces previous free-text uncoded entry 'Pork' Sulfa (Sulfonamide Antibiotics) Allergy (Unknown, Verified 03/08/23 03:24) tramadol Allergy (Unknown, Verified 03/08/23 03:24) Reason: Drug allergy wheat Allergy (Unknown, Verified 03/08/23 03:24) 'RYE' allergy per pt; no exact matching allergy in [place]. [place] is a grass in the wheat family. sulfamethoxazole Allergy (Verified 03/08/23 03:24) Review of Systems ROS: No change since H&P Vital Signs and I&O's Vital Signs: Vital Signs Temperature 98.6 F Pulse Rate [Right] 82 Respiratory Rate 20 Blood Pressure [Right Arm] 122/66 O2 Sat by Pulse Oximetry 99 Intake and Output: Intake & Output 03/08/23 03/09/23 03/10/23 03/11/23 11:59 11:59 11:59 11:59 Intake Total 120 / 120 2357 / 2357 2495 / 2495 2747 / 2747 Output Total 400 / 400 220 / 220 1600 / 1600 Balance 120 / 120 1957 / 1957 2275 / 2275 1147 / 1147 Physical Exam Oriented: Normal Nose: Normal Respiratory: Generalized and Rhonchi Cardiovascular: Normal Auscultation: Bowel Sounds: Normal Tenderness: Normal Skin: Decreased Turgur Musculoskeletal: Normal Psychiatric: Normal Mood Description: Flat Affect: Flat Speech Pattern: Clear and Appropriate Laboratory and Diagnostics 03/11/23 05:45 03/11/23 05:45 Labs: 03/08/23 03:15 Blood Blood Culture - Preliminary 03/08/23 03:10 Blood Blood Culture - Preliminary 03/08/23 03:30 Urine,Catheterized Urine Culture - Final Escherichia Coli Laboratory WBC 6.1 X10^3/uL (3.6-10.0) 03/11/23 05:45 RBC 3.77 X10^6/uL (3.5-5.4) 03/11/23 05:45 Hgb 11.0 g/dL (12.0-16.0) L 03/11/23 05:45 Hct 34.0 % (36.0-47.0) L 03/11/23 05:45 MCV 90.2 fL (80.0-100.0) 03/11/23 05:45 MCH 29.1 pg (27.0-34.0) 03/11/23 05:45 MCHC 32.2 g/dL (33.0-35.0) L 03/11/23 05:45 RDW 14.9 % (11.6-16.5) 03/11/23 05:45 Plt Count 284 X10^3/uL (150.0-450.0) 03/11/23 05:45 MPV 9.2 fL (7.4-11.0) 03/11/23 05:45 Neut % (Auto) 67.2 % (42.0-75.0) 03/11/23 05:45 Lymph % (Auto) 14.8 % (21.0-51.0) L 03/11/23 05:45 [place] % (Auto) 9.8 % (0.0-13.0) 03/11/23 05:45 Eos % (Auto) 6.8 % (0.9-2.9) H 03/11/23 05:45 Baso % (Auto) 1.4 % (0.2-1.0) H 03/11/23 05:45 Neut # (Auto) 4.1 x10^3/uL (2.2-4.8) 03/11/23 05:45 Lymph # (Auto) 0.9 X10^3/uL (1.3-2.9) L 03/11/23 05:45 [place] # (Auto) 0.6 x10^3/uL (0.3-0.8) 03/11/23 05:45 Eos # (Auto) 0.4 x10^3/uL (0.0-0.2) H 03/11/23 05:45 Baso # (Auto) 0.1 X10^3/uL (0.0-0.1) 03/11/23 05:45 Absolute Nucleated RBC 0.0 /100WBC 03/11/23 05:45 Sample Site Rr 03/08/23 03:09 ABG pH 7.420 (7.35-7.45) 03/08/23 03:09 ABG pCO2 41.0 mmHg (35.0-45.0) 03/08/23 03:09 ABG pO2 61.0 mmHg (80.0-100.0) L 03/08/23 03:09 ABG HCO3 26.6 mmol/L (22-26) H 03/08/23 03:09 ABG O2 Saturation 91.0 % (90-100) 03/08/23 03:09 ABG Base Excess 1.9 mmol/L (-2.0-2.0) 03/08/23 03:09 Trav Test Pos 03/08/23 03:09 A-a Gradient 116.0 mmHg 03/08/23 03:09 FiO2 32.0 03/08/23 03:09 Blood Gas Comments Amol well ae 03/08/23 03:09 Sodium 143 mmol/L (136-145) 03/11/23 05:45 Corrected Sodium TNP 03/11/23 05:45 Potassium 4.0 mmol/L (3.5-5.1) 03/11/23 05:45 Chloride 110 mmol/L (98-107) H 03/11/23 05:45 Carbon Dioxide 26.9 mmol/L (21-32) 03/11/23 05:45 BUN 5 mg/dL (7-18) L 03/11/23 05:45 Creatinine 0.33 mg/dL (0.55-1.02) L 03/11/23 05:45 Est GFR (MDRD) Af Amer > 60 (>60) 03/11/23 05:45 Est GFR (MDRD) Non-Af > 60 (>60) 03/11/23 05:45 Glucose 81 mg/dL (65-99) 03/11/23 05:45 Lactic Acid 1.0 mmol/L (0.4-2.0) 03/08/23 03:10 Calcium 8.3 mg/dL (8.5-10.1) L 03/11/23 05:45 Corrected Calcium 9.7 mg/dL (8.5-10.1) 03/11/23 05:45 Magnesium 2.4 mg/dL (2.0-2.9) 03/10/23 05:30 Total Bilirubin 0.40 mg/dL (0.2-1.0) 03/11/23 05:45 AST 25 Units/L (15-37) 03/11/23 05:45 ALT 14 Units/L (12-78) 03/11/23 05:45 Alkaline Phosphatase 156 Units/L (46-116) H 03/11/23 05:45 Creatine Kinase 79 Units/L (26-192) 03/08/23 03:10 Troponin I High Sens 4.1 ng/L (4.0-60.0) 03/08/23 03:10 B-Natriuretic Peptide 53.4 pg/mL (0-79) 03/08/23 03:10 Total Protein 5.8 g/dL (6.4-8.2) L 03/11/23 05:45 Albumin 2.3 g/dL (3.4-5.0) L 03/11/23 05:45 Globulin 3.5 g/dL (2.5-4.5) 03/11/23 05:45 Albumin/Globulin Ratio 0.7 Ratio (1.1-2.1) L 03/11/23 05:45 Specimen Type Catherized urine 03/08/23 03:30 Urine Color Yellow (YELLOW) 03/08/23 03:30 Urine Appearance Hazy (CLEAR) 03/08/23 03:30 Urine pH 5.0 (5.0 - 8.0) 03/08/23 03:30 Ur Specific [place] 1.025 (1.000-1.030) 03/08/23 03:30 Urine Protein Negative (NEGATIVE) 03/08/23 03:30 Urine Glucose (UA) Negative (NEGATIVE) 03/08/23 03:30 Urine Ketones Negative (NEGATIVE) 03/08/23 03:30 Urine Blood 2+ (NEGATIVE) 03/08/23 03:30 Urine Nitrite Positive (NEGATIVE) 03/08/23 03:30 Urine Bilirubin Negative (NEGATIVE) 03/08/23 03:30 Urine Urobilinogen Normal (NORMAL) 03/08/23 03:30 Ur Leukocyte Esterase 2+ (NEGATIVE) 03/08/23 03:30 Urine RBC 3-5 /HPF (0-3) A 03/08/23 03:30 Urine WBC 20-30 /HPF (0-5) A 03/08/23 03:30 Ur Squamous Epith Cells Few /HPF (NEGATIVE) 03/08/23 03:30 Calcium Oxalate Crystal Few /HPF (NEGATIVE) 03/08/23 03:30 Urine Bacteria 2+ /HPF (NEGATIVE) 03/08/23 03:30 Urine Mucus Many /HPF (NEGATIVE) 03/08/23 03:30 Ur Culture Indicated? Yes/culture set up 03/08/23 03:30 SARS-CoV-2 (PCR) Negative (NEGATIVE) 03/08/23 03:09 Influenza Type A (PCR) Negative (NEGATIVE) 03/08/23 03:09 Influenza Type B (PCR) Negative (NEGATIVE) 03/08/23 03:09 RSV (PCR) Negative (NEGATIVE) 03/08/23 03:09 Plan (1) Aspiration pneumonia: Status: Acute Qualifiers: Aspiration pneumonia type: unspecified Laterality: unspecified laterality Lung location: unspecified part of lung Qualified Code(s): J69.0 - Pneumonitis due to inhalation of food and vomit (2) Urinary tract infection: Status: Acute Qualifiers: Hematuria presence: without hematuria Urinary tract infection type: acute cystitis Qualified Code(s): N30.00 - Acute cystitis without hematuria (3) Bronchitis: Status: Acute (4) Acute respiratory insufficiency: Status: Acute (5) History of CVA (cerebrovascular accident): Status: Chronic
--- NOTE | 2023-03-11 08:41 | PCM.DCPLAN ---
DISCHARGE SUMMARY Admission Date Date of Admission: 03/08/23 Discharge Date Discharge Date: 03/11/23 Admission Diagnoses (1) Aspiration pneumonia: Status: Acute (2) Urinary tract infection: Status: Acute (3) Bronchitis: Status: Acute (4) Acute respiratory insufficiency: Status: Acute (5) History of CVA (cerebrovascular accident): Status: Chronic Discharge Diagnoses Discharge Diagnosis: 1. Aspiration pneumonia 2. Bacteriuria 3. Bronchitis 4. Acute respiratory sufficiency resolved 5. History of CVAstable Discharge Medications Discharge Medications: Home Medication List brimonidine 0.2 % eye drops 1 drp ophthalmic (eye) BID 03/08/23 [History] diphenhydramine-zinc acetate 1 %-0.1 % topical cream (Benadryl Itch Stopping) 1 applic topical Q8H PRN 03/08/23 [History] fluticasone propionate 50 mcg/actuation nasal spray,suspension 2 spray intranasal DAILY 03/08/23 [History] hydrocortisone 2.5 % topical cream 1 applic topical QID PRN 03/08/23 [History] montelukast 10 mg tablet 10 mg PO QDAY 03/08/23 [History] potassium chloride 10 mEq capsule,extended release 10 meq PO TID 03/08/23 [History] zinc acetate 50 mg (zinc) capsule 50 mg PO BID 03/08/23 [History] amoxicillin 875 mg-potassium clavulanate 125 mg tablet 1 tab PO Q12H #14 tabs 03/11/23 [Rx] ciprofloxacin HCl 500 mg tablet (Cipro) 500 mg PO Q12H #14 tabs 03/11/23 [Rx] Prescriptions: amoxicillin-pot clavulanate Paul Roman ciprofloxacin HCl [Cipro] Paul Roman Hospital Course Vital Signs: Vital Signs Temperature 98.6 F Pulse Rate [Right] 82 Respiratory Rate 20 Blood Pressure [Right Arm] 122/66 O2 Sat by Pulse Oximetry 99 Latest Lab Results: Laboratory Last Values WBC 6.1 X10^3/uL (3.6-10.0) 03/11/23 05:45 RBC 3.77 X10^6/uL (3.5-5.4) 03/11/23 05:45 Hgb 11.0 g/dL (12.0-16.0) L 03/11/23 05:45 Hct 34.0 % (36.0-47.0) L 03/11/23 05:45 MCV 90.2 fL (80.0-100.0) 03/11/23 05:45 MCH 29.1 pg (27.0-34.0) 03/11/23 05:45 MCHC 32.2 g/dL (33.0-35.0) L 03/11/23 05:45 RDW 14.9 % (11.6-16.5) 03/11/23 05:45 Plt Count 284 X10^3/uL (150.0-450.0) 03/11/23 05:45 MPV 9.2 fL (7.4-11.0) 03/11/23 05:45 Neut % (Auto) 67.2 % (42.0-75.0) 03/11/23 05:45 Lymph % (Auto) 14.8 % (21.0-51.0) L 03/11/23 05:45 [place] % (Auto) 9.8 % (0.0-13.0) 03/11/23 05:45 Eos % (Auto) 6.8 % (0.9-2.9) H 03/11/23 05:45 Baso % (Auto) 1.4 % (0.2-1.0) H 03/11/23 05:45 Neut # (Auto) 4.1 x10^3/uL (2.2-4.8) 03/11/23 05:45 Lymph # (Auto) 0.9 X10^3/uL (1.3-2.9) L 03/11/23 05:45 [place] # (Auto) 0.6 x10^3/uL (0.3-0.8) 03/11/23 05:45 Eos # (Auto) 0.4 x10^3/uL (0.0-0.2) H 03/11/23 05:45 Baso # (Auto) 0.1 X10^3/uL (0.0-0.1) 03/11/23 05:45 Absolute Nucleated RBC 0.0 /100WBC 03/11/23 05:45 Sample Site Rr 03/08/23 03:09 ABG pH 7.420 (7.35-7.45) 03/08/23 03:09 ABG pCO2 41.0 mmHg (35.0-45.0) 03/08/23 03:09 ABG pO2 61.0 mmHg (80.0-100.0) L 03/08/23 03:09 ABG HCO3 26.6 mmol/L (22-26) H 03/08/23 03:09 ABG O2 Saturation 91.0 % (90-100) 03/08/23 03:09 ABG Base Excess 1.9 mmol/L (-2.0-2.0) 03/08/23 03:09 Trav Test Pos 03/08/23 03:09 A-a Gradient 116.0 mmHg 03/08/23 03:09 FiO2 32.0 03/08/23 03:09 Blood Gas Comments Amol well ae 03/08/23 03:09 Sodium 143 mmol/L (136-145) 03/11/23 05:45 Corrected Sodium TNP 03/11/23 05:45 Potassium 4.0 mmol/L (3.5-5.1) 03/11/23 05:45 Chloride 110 mmol/L (98-107) H 03/11/23 05:45 Carbon Dioxide 26.9 mmol/L (21-32) 03/11/23 05:45 BUN 5 mg/dL (7-18) L 03/11/23 05:45 Creatinine 0.33 mg/dL (0.55-1.02) L 03/11/23 05:45 Est GFR (MDRD) Af Amer > 60 (>60) 03/11/23 05:45 Est GFR (MDRD) Non-Af > 60 (>60) 03/11/23 05:45 Glucose 81 mg/dL (65-99) 03/11/23 05:45 Lactic Acid 1.0 mmol/L (0.4-2.0) 03/08/23 03:10 Calcium 8.3 mg/dL (8.5-10.1) L 03/11/23 05:45 Corrected Calcium 9.7 mg/dL (8.5-10.1) 03/11/23 05:45 Magnesium 2.4 mg/dL (2.0-2.9) 03/10/23 05:30 Total Bilirubin 0.40 mg/dL (0.2-1.0) 03/11/23 05:45 AST 25 Units/L (15-37) 03/11/23 05:45 ALT 14 Units/L (12-78) 03/11/23 05:45 Alkaline Phosphatase 156 Units/L (46-116) H 03/11/23 05:45 Creatine Kinase 79 Units/L (26-192) 03/08/23 03:10 Troponin I High Sens 4.1 ng/L (4.0-60.0) 03/08/23 03:10 B-Natriuretic Peptide 53.4 pg/mL (0-79) 03/08/23 03:10 Total Protein 5.8 g/dL (6.4-8.2) L 03/11/23 05:45 Albumin 2.3 g/dL (3.4-5.0) L 03/11/23 05:45 Globulin 3.5 g/dL (2.5-4.5) 03/11/23 05:45 Albumin/Globulin Ratio 0.7 Ratio (1.1-2.1) L 03/11/23 05:45 Specimen Type Catherized urine 03/08/23 03:30 Urine Color Yellow (YELLOW) 03/08/23 03:30 Urine Appearance Hazy (CLEAR) 03/08/23 03:30 Urine pH 5.0 (5.0 - 8.0) 03/08/23 03:30 Ur Specific [place] 1.025 (1.000-1.030) 03/08/23 03:30 Urine Protein Negative (NEGATIVE) 03/08/23 03:30 Urine Glucose (UA) Negative (NEGATIVE) 03/08/23 03:30 Urine Ketones Negative (NEGATIVE) 03/08/23 03:30 Urine Blood 2+ (NEGATIVE) 03/08/23 03:30 Urine Nitrite Positive (NEGATIVE) 03/08/23 03:30 Urine Bilirubin Negative (NEGATIVE) 03/08/23 03:30 Urine Urobilinogen Normal (NORMAL) 03/08/23 03:30 Ur Leukocyte Esterase 2+ (NEGATIVE) 03/08/23 03:30 Urine RBC 3-5 /HPF (0-3) A 03/08/23 03:30 Urine WBC 20-30 /HPF (0-5) A 03/08/23 03:30 Ur Squamous Epith Cells Few /HPF (NEGATIVE) 03/08/23 03:30 Calcium Oxalate Crystal Few /HPF (NEGATIVE) 03/08/23 03:30 Urine Bacteria 2+ /HPF (NEGATIVE) 03/08/23 03:30 Urine Mucus Many /HPF (NEGATIVE) 03/08/23 03:30 Ur Culture Indicated? Yes/culture set up 03/08/23 03:30 SARS-CoV-2 (PCR) Negative (NEGATIVE) 03/08/23 03:09 Influenza Type A (PCR) Negative (NEGATIVE) 03/08/23 03:09 Influenza Type B (PCR) Negative (NEGATIVE) 03/08/23 03:09 RSV (PCR) Negative (NEGATIVE) 03/08/23 03:09 Hospital Course: Ms Pan is a 82 y.o female who is currently a resident of [facility]. She was noted to have worsening shortness of breath and cough last night. Her O2 sats were in the 70s so she was sent to the ER for further evaluation. She was found to have UTI. RSV/COVID/FLU all negative. She is currently on 3 L NC. Her daughter is present at bedside. Patient has been coughing up some sputum. She was started on IV Rocephin, hydration and nebs. By the following morning the patient was feeling better she was continued on the current treatment. By the next day her urine culture came back and it grew out E. coli but colony count showed greater than 50,000 CFU's but less than 100,000 CFU's. This is not consistent with a urinary tract infection but with bacteriuria. Patient was feeling much better today and she reported that she feels better than she has in many years. Chest x-ray is stable so we will change her over to p.o. Augmentin and ciprofloxacin and discharge her back to the alf today. Discharge disposition patient will be discharged back to the alf in stable condition today. Discharge medications. The patient will resume her regular alf medications as before. I will be giving her Augmentin 500 mg 1 p.o. twice daily for a week and ciprofloxacin 500 mg p.o. twice daily x 1 week as well. I will be following up with her later this month when I do alf rounds in the next few weeks.
[2023-03-11] MEDS: XARELTO PO SCH (09:01)
[2023-03-11] MEDS: FLONASE NASAL SPRAY ENOSTRIL SCH (09:01)
[2023-03-11] MEDS: ARTIFICIAL TEARS DROPS OP SCH (09:01)
[2023-03-11 10:08] VITALS: BMI 25.5
[2023-03-11 14:32] VITALS: BP 159/68; PULSE 90; RESP 24; TEMP 98.5; O2SAT 96
== END 2023-03-11 13:55 | DRG 177 ==
LOC: ER 02:57 → MED/SURG 04:23
PROVIDERS: ADMIT Internal Medicine; ATTEND Family Medicine